=== PATIENT | female | born 1975 | race Caucasian/White ===

== ENCOUNTER → 2016-10-25 | Outpatient (CLI) | payer OTHER ==
[~2016-10-25] MED LIST: AMIT25TA PO; AMLO5TAB2 PO; BACL-67 PO; DICL50TAB PO; HYDR-3713 PO; HYDR25TAB PO; LIPI20TA PO; LISI20TA3 PO; LYRI150C PO; MELO7.5S PO; OXYB5TA PO; ROBA750T4 PO; SOMA350T PO; TIZA4CAP3 PO; VITA50003 PO; ZOFR20TA PO
--- NOTE | 2016-10-26 00:41 | ECWPNPC ---
PATIENT NAME: KIRA RAO : 1975 GENDER: FEMALE VISIT DATE: 10/25/2016 DISCHARGE DATE: 10/25/16 0950 VISIT LOCKED DATE TIME: PHYSICIAN: MAT WELSH RESOURCE: MAT WELSH REASON FOR APPOINTMENT 1. FOLLOW UP-POST TPI HISTORY OF PRESENT ILLNESS HISTORY OF PRESENT ILLNESS: PAIN THE PATIENT DESCRIBES THE PAIN... FALL RISK SCREENING: SCREENING :NO FALLS IN THE PAST YEAR TODAY'S VISIT: NOTES: PT IS S/P TRIGGER POINT INJECTIONS TO LOW BACK ON 09/27/16 . NOTES PAIN INCREASED AFTER ONE WEEK WITH RETURN OF SIGNIFICANT PRESSURE IN LEFT LOW BACK RADIATION TO HIP AND BUTTUCK. THIS OCCURED WITH ACTIVITY. WALKING AND ACTIVITY INCREASES PAIN RATES PAIN TODAY 7/10. DESCRIBES PAIN CONSTANT, ACHING, SHARP AND SORE. IS ASKING TODAY FOR A CANE.STATES LEGS FEEL WEAK.. CURRENT MEDICATIONS TAKING LIPITOR 40 MG TABLET 1 TABLET ORALLY ONCE A DAY TAKING LISINOPRIL 40 MG TABLET 1 TABLET ORALLY ONCE A DAY TAKING VITAMIN D (ERGOCALCIFEROL) 65838 UNIT CAPSULE 1 CAPSULE ORALLY WEEKLY TAKING SOMA 350 MG TABLET 1-2 TABLET ORALLY AT BEDTIME MDD=2 TAKING ZOFRAN ODT 8 MG TABLET DISPERSIBLE DIRECTED ORALLY Q 8 HOURS PRN NAUSEA TAKING NORCO 5-325 MG TABLET 1 -2 TABLET ORALLY EVERY 6-8 HRS NEEDED FOR PAIN. MDD = 3 TAKING GABAPENTIN 300 MG CAPSULE 1 CAPSULE ORALLY BID NOT-TAKING ADVAIR HFA 45-21 MCG/ACT AEROSOL 1 PUFFS INHALATION DAILY NOT-TAKING OXYBUTYNIN CHLORIDE 5 MG TABLET 1 TABLET ORALLY DAILY NOT-TAKING HYDROCHLOROTHIAZIDE 12.5 12.5MG TABLET ORAL NOT-TAKING FIORICET 50-300-40 MG CAPSULE 1 CAPSULE NEEDED ORALLY EVERY 4 HRS PRN MIGRAINE MDD=3 NOT-TAKING NORVASC 5 MG TABLET 1 TABLET ORALLY ONCE A DAY NOT-TAKING ONDANSETRON 4 MG TABLET DISPERSIBLE ORALLY DIRECTED UNKNOWN SOMA COMPOUND 350 MG TABLET 2 TABLETS ORALLY AT BEDTIME UNKNOWN SOMA 350 MG TABLET 1 TABLET ORALLY BID MDD=2 MEDICATION LIST REVIEWED AND RECONCILED WITH THE PATIENT PAST MEDICAL HISTORY HTN 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 NEW PATIENT PAIN DIARY TODAY'S VISITNOTES FROM 0-10, WHAT LEVEL IS YOUR PAIN TODAY?0 PAIN CLINIC PFS, CLERGY, PUBLIC HEALTH REFERRALS PFS REFERRAL NEEDED?NO CLERGY REFERRAL NEEDED?NO PUBLIC HEALTH REFERRAL NEEDED?NO WAS THE PROVIDER NOTIFIED OF ANY PERTINENT INFO?NO PFS REFERRAL NEEDED?NO CLERGY REFERRAL NEEDED?NO PUBLIC HEALTH REFERRAL NEEDED?NO WAS THE PROVIDER NOTIFIED OF ANY PERTINENT INFO?NO REVIEW OF SYSTEMS CONSTITUTIONAL: ANY CHANGE IN YOUR MEDICAL CONDITION? NO . CHILLS NO . FEVER NO . INFECTION: DO YOU HAVE NEW INFECTIONS? NO . DO YOU HAVE HISTORY OF MRSA? NO . MUSCULOSKELETAL: ANY NEW PATTERNS OF PAIN OR NUMBNESS? NO . GASTROENTEROLOGY: ANY NEW CHANGE IN BOWEL CONTROL? NO - NOTES SOME CONSTIPATION BUT REPORTS BOWELS MOVE DAILY. NOTES SOME ABDOMINAL BLOATING . GENITOURINARY: ANY NEW CHANGE IN BLADDER CONTROL? NO . IS THERE A CHANCE YOU COULD BE ? NO . HEMATOLOGY/LYMPH: DO YOU TAKE ANY BLOOD THINNERS? (FOR EXAMPLE- COUMADIN, PLAVIX, AGGRENOX, PLATEL, PRADAXA, OR XARELTO) NO . WHEN WAS YOUR LAST DOSE? DATE: TIME: . NEUROLOGY: HAVE YOU FALLEN IN THE PAST 6 MONTHS? NO . ANY NEW EXTREMITY NUMBNESS OR WEAKNESS? NO . CARDIOLOGY: DO YOU HAVE A PACEMAKER OR DEFIBRILLATOR? NO . RESPIRATORY: HAVE YOU BEEN SICK IN THE PAST WEEK? NO . FEVER NO . FLU LIKE SYMPTOMS? NO . COUGH NO . INTEGUMENTARY: DO YOU HAVE ANY RASHES OR OPEN SORES? NO . ALLERGIC/IMMUNO: ARE YOU ALLERGIC TO SHELLFISH OR IV DYE? NO . ANY NEW ALLERGIES? NO . PSYCHIATRIC: DO YOU HAVE THOUGHTS OF HURTING YOURSELF OR SOMEONE ELSE? NO . ARE YOU ABUSED, NEGLECTED, OR IN AN UNSAFE ENVIRONMENT? NO . ENDOCRINOLOGY: ARE YOU DIABETIC? NO . OTHER: DO YOU NEED ANY PRESCRIPTIONS? NO . IF YES, PLEASE LIST: ____ . ANY NEW PROBLEMS WITH YOUR MEDICATIONS? NO . WHEN DID YOU LAST EAT? ____ . WHEN DID YOU LAST DRINK? ____ . WHAT DID YOU LAST DRINK? ____ . NAME OF PERSON DRIVING YOU HOME? ____ . DO YOU HAVE ANY OTHER QUESTIONS OR CONCERNS NO . REVIEWED BY: PROVIDER: MAT BOWSERP . VITAL SIGNS WT 198.6 LBS, HT 54 IN, BMI 47.88 INDEX, BP 117/67 MM HG, HR 85 /MIN, RR 16 /MIN, TEMP 98.0 F, OXYGEN SAT % 96, NA INITIALS TL 0909. EXAMINATION GENERAL EXAMINATION: PSYCHALERT , ORIENTED X 3 , APPROPRIATE MOOD AND AFFECT . LUNGS:CLEAR TO AUSCULTATION BILATERALLY. HEART:HEART RATE REGULAR. MUSCULOSKELETAL:MUSCLE STRENGTH TESTING 5/5 BILATERAL LOWER EXTREMITIES. POINT TENDERNESS OVER LUMBAR SPINOUS PROCESSIES AND BILATERALLY OVER SACRAL ILIAC JOINTS. SLOW TO RISE TO STANDING POSITION. POSTURE UPRIGHT. GAIT SLOW, WIDEBASED AND ANTALGIC., TRIGGER POINTS:, ELICITED WITH PALPATION OVER LUMBAR PARAVERTEBRAL MUSCLES AND INTO THE SECRUM. RESTRICTION OF ROM IN THIS AREA. ASSESSMENTS SPONDYLOSIS WITHOUT MYELOPATHY OR RADICULOPATHY, LUMBAR REGION - M47.816 MYALGIA - M79.1 LUMBAR DISC DISPLACEMENT WITHOUT MYELOPATHY - M51.26 TREATMENT SPONDYLOSIS WITHOUT MYELOPATHY OR RADICULOPATHY, LUMBAR REGION CAUDAL/LUMBAR EPIDURAL NOTES: CONTINUE CURRENT MEDS. USE MILK OF MAGNESIA NEEDED FOR CONSTIPATION. SCRIPT FOR CANE WRITTEN - USE FOR BALANCE BUT DO NOT LEAN HEAVILY ON IT UTOX TODAY, ISTOP REGISTRY REVIEWED AND DEMNOSTRATES COMPLLIANCE. BRINGS IN MEDICATIONS WHICH IS APPROPRIATE FOR WHAT WAS DISPENSED. RECENT URINE TOXICOLOGY REVIEWED. NO UNAUTHORIZED MEDICATIONS. NO ILLICIT SUBSTANCES AND PRESCRIBED MEDICATIONS WERE PRESENT. MRI OF LUMBAR SPINE REVIEWED AND DISCUSSED WITH PATIENT. PROCEDURE CODES FA211 ESTABILISHED PATIENT [facility] FACILITY CHARGE ELECTRONICALLY SIGNED BY RAQUEL LIRA ON 10/25/2016 AT 10:21 AM EST DISCLAIMER : THIS IS A VISIT SUMMARY EXTRACTED FROM THE [employer] CHART. IT IS NOT A COPY OF THE [employer] PROGRESS NOTE. VIVIAN
== END ==
LOC: M PAIN 09:00
PROVIDERS: ATTEND Nurse Practitioner Family
DX: M47.816 Spondylosis without myelopathy or radiculopathy, lumbar region (principal); M79.1 Myalgia; M51.26 Other intervertebral disc displacement, lumbar region; Z79.891 Long term (current) use of opiate analgesic; Z79.899 Other long term (current) drug therapy

== ENCOUNTER → 2016-10-26 | Outpatient (CLI) | payer OTHER ==
[~2016-10-26] MED LIST changes: -HYDR-3713 PO; +HYDR1TAB97 PO
--- NOTE | 2016-10-26 09:18 | REP ---
CT chest without contrast 10/26/2016 Indication solitary pulmonary nodule Comparison made with chest radiograph 09/03/2016, CTA chest 12/22/2015 Technique: 3 mm contiguous spiral axial sections were performed through chest without contrast Findings: The thoracic aorta, chest radiograph 09/03/2016 Findings: Thoracic aorta is without aneurysm and few small nonspecific spinal nodes none of which are pathologically enlarged. There is no visualized pathologically enlarged hilar nodes although evaluation is somewhat limited in the absence of IV contrast. 3.5 mm focus of nodular pleural thickening is seen in the posterior aspect right upper lobe on image 23 series 201. Stable 3 mm pleural-based nodule in the lateral basilar segment left lower lobe, and may possibly representing a tiny granuloma, yet mostly uncalcified . Small amount of fibrotic scarring present within the right middle lobe, in region of the minor fissure. Minimal left basilar atelectatic changes are noted. Visualized portions of the liver, spleen, and pancreas normal. There has been a prior cholecystectomy. Adrenal glands are normal. Stomach is contracted. Impression 1. No pathologically enlarged mediastinal or hilar adenopathy 2. 3.5 mm focus of nodular pleural thickening and posterior aspect right upper lobe; 3 mm pleural-based nodule in the lateral basilar segment left lower lobe, possibly granuloma. If the patient is high risk for lung disease consider follow-up CT chest n 12 months 3. Small amount of chronic scarring in right middle lobe adjacent to minor fissure; minimal left basilar atelectatic changes. Signed by Ana Clark MD 10/26/2016 09:10 A
== END ==
LOC: M RAD 06:58
PROVIDERS: ATTEND Internal Medicine Pulmonary Disease
DX: R91.1 Solitary pulmonary nodule (principal); J84.10 Pulmonary fibrosis, unspecified

== ENCOUNTER → 2016-11-06 | Outpatient (CLI) | payer OTHER ==
[~2016-11-06] MED LIST changes: +HYDR-3713 PO; -HYDR1TAB97 PO; +ISOVUE-M 300 61% 15ML VIAL (Q9967) As Ordered ONE; +LIDOCAINE 1% SDV INJ 30 ML VIAL As Ordered ONE; +diazePAM 5 MG TAB As Ordered ONE; +methylPREDNISolone SUSP 40 MG/ML (DEPO-medrol) VIAL (J1030) As Ordered ONE; +oxyCODONE 5MG TAB As Ordered ONE
--- NOTE | 2016-11-06 13:59 | REP ---
PARTIAL LUMBAR SPINE SERIES: Three views. HISTORY: Spine injection for pain. 9 seconds of fluoroscopy time is reported. FINDINGS: A sequence of three fluoroscopically obtained intraprocedural spot radiographs of the lumbar spine document needle position and contrast injection associated with lumbar epidural injection procedure. Signed by Grant Kuhn MD 11/06/2016 02:07 P
--- NOTE | 2016-11-19 00:08 | ECWPNPC ---
PATIENT NAME: KIRA RAO : 1975 GENDER: FEMALE VISIT DATE: 11/06/2016 DISCHARGE DATE: 11/06/16 1233 VISIT LOCKED DATE TIME: PHYSICIAN: CASSANDRA RICHEY RESOURCE: CASSANDRA RICHEY REASON FOR APPOINTMENT 1. PROCEDURE: CAUDAL/LUMBAR EPIDURAL HISTORY OF PRESENT ILLNESS HISTORY OF PRESENT ILLNESS: PAIN THE PATIENT DESCRIBES THE PAIN... FALL RISK SCREENING: SCREENING :NO FALLS IN THE PAST YEAR CURRENT MEDICATIONS TAKING LIPITOR 40 MG TABLET 1 TABLET ORALLY ONCE A DAY, NOTES: NONE LATELY TAKING LISINOPRIL 40 MG TABLET 1 TABLET ORALLY ONCE A DAY, NOTES: 11/06/16 0600 TAKING VITAMIN D (ERGOCALCIFEROL) 94141 UNIT CAPSULE 1 CAPSULE ORALLY WEEKLY, NOTES: 10/31/16 TAKING SOMA 350 MG TABLET 1-2 TABLET ORALLY AT BEDTIME MDD=2, NOTES: 11/06/16 2000 TAKING ZOFRAN ODT 8 MG TABLET DISPERSIBLE DIRECTED ORALLY Q 8 HOURS PRN NAUSEA, NOTES: NONE LATELY TAKING NORCO 5-325 MG TABLET 1 -2 TABLET ORALLY EVERY 6-8 HRS NEEDED FOR PAIN. MDD = 3, NOTES: 11/06/16 0200 TAKING GABAPENTIN 300 MG CAPSULE 1 CAPSULE ORALLY BID, NOTES: 11/05/16 1500 NOT-TAKING ADVAIR HFA 45-21 MCG/ACT AEROSOL 1 PUFFS INHALATION DAILY NOT-TAKING OXYBUTYNIN CHLORIDE 5 MG TABLET 1 TABLET ORALLY DAILY NOT-TAKING HYDROCHLOROTHIAZIDE 12.5 12.5MG TABLET ORAL NOT-TAKING FIORICET 50-300-40 MG CAPSULE 1 CAPSULE NEEDED ORALLY EVERY 4 HRS PRN MIGRAINE MDD=3 NOT-TAKING NORVASC 5 MG TABLET 1 TABLET ORALLY ONCE A DAY NOT-TAKING ONDANSETRON 4 MG TABLET DISPERSIBLE ORALLY DIRECTED UNKNOWN SOMA COMPOUND 350 MG TABLET 2 TABLETS ORALLY AT BEDTIME UNKNOWN SOMA 350 MG TABLET 1 TABLET ORALLY BID MDD=2 MEDICATION LIST REVIEWED AND RECONCILED WITH THE PATIENT PAST MEDICAL HISTORY HTN 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 NEW PATIENT PAIN DIARY TODAY'S VISITNOTES FROM 0-10, WHAT LEVEL IS YOUR PAIN TODAY?0 TODAY'S VISITNOTES FROM 0-10, WHAT LEVEL IS YOUR PAIN TODAY?0 TODAY'S VISITNOTES FROM 0-10, WHAT LEVEL IS YOUR PAIN TODAY?0 PAIN CLINIC PFS, CLERGY, PUBLIC HEALTH REFERRALS PFS REFERRAL NEEDED?NO CLERGY REFERRAL NEEDED?NO PUBLIC HEALTH REFERRAL NEEDED?NO WAS THE PROVIDER NOTIFIED OF ANY PERTINENT INFO?NO PFS REFERRAL NEEDED?NO CLERGY REFERRAL NEEDED?NO PUBLIC HEALTH REFERRAL NEEDED?NO WAS THE PROVIDER NOTIFIED OF ANY PERTINENT INFO?NO PFS REFERRAL NEEDED?NO CLERGY REFERRAL NEEDED?NO PUBLIC HEALTH REFERRAL NEEDED?NO WAS THE PROVIDER NOTIFIED OF ANY PERTINENT INFO?NO PFS REFERRAL NEEDED?NO CLERGY REFERRAL NEEDED?NO PUBLIC HEALTH REFERRAL NEEDED?NO WAS THE PROVIDER NOTIFIED OF ANY PERTINENT INFO?NO PFS REFERRAL NEEDED?NO CLERGY REFERRAL NEEDED?NO PUBLIC HEALTH REFERRAL NEEDED?NO WAS THE PROVIDER NOTIFIED OF ANY PERTINENT INFO?NO PFS REFERRAL NEEDED?NO CLERGY REFERRAL NEEDED?NO PUBLIC HEALTH REFERRAL NEEDED?NO WAS THE PROVIDER NOTIFIED OF ANY PERTINENT INFO?NO REVIEW OF SYSTEMS CONSTITUTIONAL: ANY CHANGE IN YOUR MEDICAL CONDITION? NO . CHILLS NO . FEVER NO . INFECTION: DO YOU HAVE NEW INFECTIONS? NO . DO YOU HAVE HISTORY OF MRSA? NO . MUSCULOSKELETAL: ANY NEW PATTERNS OF PAIN OR NUMBNESS? NO . GASTROENTEROLOGY: ANY NEW CHANGE IN BOWEL CONTROL? NO . GENITOURINARY: ANY NEW CHANGE IN BLADDER CONTROL? NO . IS THERE A CHANCE YOU COULD BE ? NO . HEMATOLOGY/LYMPH: DO YOU TAKE ANY BLOOD THINNERS? (FOR EXAMPLE- COUMADIN, PLAVIX, AGGRENOX, PLATEL, PRADAXA, OR XARELTO) NO . WHEN WAS YOUR LAST DOSE? DATE: TIME: . NEUROLOGY: HAVE YOU FALLEN IN THE PAST 6 MONTHS? NO . ANY NEW EXTREMITY NUMBNESS OR WEAKNESS? NO . CARDIOLOGY: DO YOU HAVE A PACEMAKER OR DEFIBRILLATOR? NO . RESPIRATORY: HAVE YOU BEEN SICK IN THE PAST WEEK? NO . FEVER NO . FLU LIKE SYMPTOMS? NO . COUGH NO . INTEGUMENTARY: DO YOU HAVE ANY RASHES OR OPEN SORES? NO . ALLERGIC/IMMUNO: ARE YOU ALLERGIC TO SHELLFISH OR IV DYE? NO . ANY NEW ALLERGIES? NO . PSYCHIATRIC: DO YOU HAVE THOUGHTS OF HURTING YOURSELF OR SOMEONE ELSE? NO . ARE YOU ABUSED, NEGLECTED, OR IN AN UNSAFE ENVIRONMENT? NO . ENDOCRINOLOGY: ARE YOU DIABETIC? NO . OTHER: DO YOU NEED ANY PRESCRIPTIONS? NO . IF YES, PLEASE LIST: ____ . ANY NEW PROBLEMS WITH YOUR MEDICATIONS? NO . WHEN DID YOU LAST EAT? ____11/05/16 1500 . WHEN DID YOU LAST DRINK? ____11/05/16 1900 . WHAT DID YOU LAST DRINK? ____WATER . NAME OF PERSON DRIVING YOU HOME? ____NAISHA . DO YOU HAVE ANY OTHER QUESTIONS OR CONCERNS NO . REVIEWED BY: PROVIDER: . VITAL SIGNS WT 97.2 LBS, HT 54 IN, BMI 23.43 INDEX, BP 131/89 MM HG, HR 91 /MIN, RR 16 /MIN, TEMP 97.2 F, OXYGEN SAT % 100, NA INITIALS TL 1107, REVIEWED BY: MLF. ASSESSMENTS INTERVERTEBRAL DISC DISORDERS WITH RADICULOPATHY, LUMBAR REGION - M51.16 (PRIMARY) TREATMENT OTHERS REFILL NORCO TABLET, 5-325 MG, 1 -2 TABLET, ORALLY, EVERY 6-8 HRS NEEDED FOR PAIN. MDD = 4, 15 DAYS, 60, REFILLS 0, NOTES: 11/06/16 0200 PROCEDURES PRE PROCEDURE DIAGNOSIS LUMBAR RADICULOPATHY, LUMBAR DISC DISORDER WITH RADICULOPATHY POST PROCEDURE DIAGNOSIS LUMBAR RADICULOPATHY , LUMBAR DISC DISORDER WITH RADICULOPATHY PROCEDURE L4-L5 EPIDURAL STEROID INJECTION UNDER FLUOROSCOPIC GUIDANCE SURGEON DR. CASSANDRA RICHEY MACHINE PRESERVATIVE FILLER NONE ANESTHESIA LOCAL PRE PROCEDURE NOTE THE PATIENT HAS A HISTORY OF CHRONIC LOW BACK PAIN. I EVALUATE THE PATIENT AND REVIEWED THE CHART. I WENT OVER THE RISKS, ALTERNATIVES, AND BENEFITS ASSOCIATED WITH THIS PROCEDURE. THE PATIENT WOULD LIKE TO PROCEED AND GIVE CONSENT TO PERFORMED THE PROCEDURE. THE PATIENT DENIES UNEXPLAINABLE WEIGHT LOSS, FEVER, CHILLS, OR NEW CHANGES IN URINARY OR BOWEL CONTROL. DESCRIPTION OF PROCEDURE THE PATIENT WAS BROUGHT TO THE PROCEDURE ROOM AND PLACED IN THE PRONE POSITION. THE LUMBOSACRAL AREA WAS CLEANED WITH BETADINE SOLUTION AND DRAPED ASEPTICALLY. THE PROCEDURE WAS DONE UNDER STERILE CONDITIONS. I CHECKED LATERALITY AND THE LEVEL WHERE THE PROCEDURE WAS GOING TO BE PERFORMED WITH THE PATIENT AND THE SUPPORTING STAFF AT THE MOMENT OF THE TIME OUT IN THE PROCEDURE ROOM. UNDER FLUOROSCOPIC GUIDANCE, THE TARGET POINT WAS SELECTED AT THE INTERLAMINAR LEVEL OF L4-L5. LIDOCAINE WAS USED TO NUMB THE SKIN AND THE SUBCUTANEOUS TISSUE BELOW IT. EPIDURAL TUOHY NEEDLE, 17-GAUGE, WAS ADVANCED UNDER FLUOROSCOPIC GUIDANCE AND FOLLOWING PATIENT FEEDBACK UNTIL THE EPIDURAL SPACE WAS REACHED, 7 CM DEEP INTO THE SKIN BY THE LOSS OF RESISTANCE TECHNIQUE. ISOVUE M DYE 30%, 0.25 ML, WAS INJECTED SHOWING ADEQUATE SPREAD OF THE DYE. THEN, A SOLUTION OF 3 ML OF NORMAL SALINE WITH DEPO-MEDROL 60 MG WAS INJECTED SLOWLY FOLLOWING PATIENT FEEDBACK. THERE WAS NO EVIDENCE OF BLOOD, PARESTHESIA OR CEREBROSPINAL FLUID DURING THE PROCEDURE. THE PATIENT WAS SENT TO THE RECOVERY ROOM. THE PATIENT WAS MOVING THE EXTREMITIES AND DOING WELL. THERE WAS NO COMPLICATION DURING THE PROCEDURE. FLUOROSCOPY TIME WAS 9 SECONDS. POST PROCEDURE NOTE THE PATIENT WILL BE SEEN IN A FOLLOW UP IN THE NEXT FEW WEEKS. DISCUSSED WITH PATIENT THAT I WILL REFER HER TO A SURGEON FOR A SURGICAL CONSULT OF HER BACK. INSTRUCTIONS WERE GIVEN, QUESTIONS WERE ANSWERED, AND THE PATIENT EXPRESSED UNDERSTANDING AND AGREES WITH THE PLAN. INSTRUCTIONS WERE GIVEN, QUESTIONS WERE ANSWERED, PATIENT REPORTS UNDERSTANDING AND AGREES WITH THE PLAN. I, WALESKA NAVARRO, DOCUMENTED THE ABOVE INFORMATION ACTING A SCRIBE FOR DR. RICHEY. I HAVE REVIEWED THE ABOVE DOCUMENT, WRITTEN BY WALESKA NAVARRO SCRIBE AND I VERIFY THAT IT IS ACCURATE. DIAGNOSTIC IMAGING [facility] FLUORO GUIDE SPINE INJECTION (PAIN)[id number] PROCEDURE CODES 55714 LUMBAR/SACRAL W/ IMAGING 6045F RADXPS IN END [id number] PXD FOLLOW UP 3 WEEKS ELECTRONICALLY SIGNED BY CASSANDRA RICHEY MD ON 11/18/2016 AT 07:40 PM EST DISCLAIMER : THIS IS A VISIT SUMMARY EXTRACTED FROM THE [employer] CHART. IT IS NOT A COPY OF THE [employer] PROGRESS NOTE. MTDD
== END ==
LOC: M PAIN 10:50
PROVIDERS: ATTEND Anesthesiology
DX: Z09 Encounter for follow-up examination after completed treatment for conditions other than malignant neoplasm (principal); G89.29 Other chronic pain; M51.16 Intervertebral disc disorders with radiculopathy, lumbar region; I10 Essential (primary) hypertension; J45.909 Unspecified asthma, uncomplicated; Z79.891 Long term (current) use of opiate analgesic; Z79.899 Other long term (current) drug therapy
CPT/HCPCS: 62323; J1030; Q9967

== ENCOUNTER → 2016-11-21 | Outpatient (CLI) | payer OTHER ==
[~2016-11-21] MED LIST changes: -ISOVUE-M 300 61% 15ML VIAL (Q9967) As Ordered ONE; -LIDOCAINE 1% SDV INJ 30 ML VIAL As Ordered ONE; -diazePAM 5 MG TAB As Ordered ONE; -methylPREDNISolone SUSP 40 MG/ML (DEPO-medrol) VIAL (J1030) As Ordered ONE; -oxyCODONE 5MG TAB As Ordered ONE
--- NOTE | 2016-12-06 01:06 | ECWPNPC ---
PATIENT NAME: KIRA RAO : 1975 GENDER: FEMALE VISIT DATE: 11/21/2016 DISCHARGE DATE: 11/21/16 1532 VISIT LOCKED DATE TIME: PHYSICIAN: MAT WELSH RESOURCE: MAT WELSH REASON FOR APPOINTMENT 1. POST PROCEDURE, BACK/HIPS HISTORY OF PRESENT ILLNESS HISTORY OF PRESENT ILLNESS: PAIN THE PATIENT DESCRIBES THE PAIN... FALL RISK SCREENING: SCREENING :NO FALLS IN THE PAST YEAR TODAY'S VISIT: NOTES: HAS LESB 11/06/16. THIS HAD NO POSITIVE EFFECT. DR RICHEY REFERRED HER TO DR RIDDLE AND WAS SEEN TODAY BY Kate GARCIA FOR EVALUATION. STATES HE DID NOT HAVE THE MOST RECENT MRI. IS HAVING SHARP STABBING, POPPING SENSATION IN THE LOW BACK PARTICULARLY WHEN SHE BENDS. NOTES THAT HER MEDICATIONS ARE NOT GIVING HER MUCH RELIEF THEY USED TO. RATES PAIN LEVEL TODAY 9/10 DESCRIBES IT CONSTANT WITH INTERMITTENT SHARP STABBING AND SHOOTING SENSATION ACROSS THE LOW BACK AND INTO THE GROIN AND LEGS.. CURRENT MEDICATIONS TAKING LIPITOR 40 MG TABLET 1 TABLET ORALLY ONCE A DAY TAKING LISINOPRIL 40 MG TABLET 1 TABLET ORALLY ONCE A DAY TAKING VITAMIN D (ERGOCALCIFEROL) 47993 UNIT CAPSULE 1 CAPSULE ORALLY WEEKLY TAKING SOMA 350 MG TABLET 1-2 TABLET ORALLY AT BEDTIME MDD=2 TAKING ZOFRAN ODT 8 MG TABLET DISPERSIBLE DIRECTED ORALLY Q 8 HOURS PRN NAUSEA TAKING GABAPENTIN 300 MG CAPSULE 1 CAPSULE ORALLY BID TAKING NORCO 5-325 MG TABLET 1 -2 TABLET ORALLY EVERY 6-8 HRS NEEDED FOR PAIN. MDD = 4 NOT-TAKING ADVAIR HFA 45-21 MCG/ACT AEROSOL 1 PUFFS INHALATION DAILY NOT-TAKING OXYBUTYNIN CHLORIDE 5 MG TABLET 1 TABLET ORALLY DAILY NOT-TAKING HYDROCHLOROTHIAZIDE 12.5 12.5MG TABLET ORAL NOT-TAKING FIORICET 50-300-40 MG CAPSULE 1 CAPSULE NEEDED ORALLY EVERY 4 HRS PRN MIGRAINE MDD=3 NOT-TAKING NORVASC 5 MG TABLET 1 TABLET ORALLY ONCE A DAY NOT-TAKING ONDANSETRON 4 MG TABLET DISPERSIBLE ORALLY DIRECTED UNKNOWN SOMA COMPOUND 350 MG TABLET 2 TABLETS ORALLY AT BEDTIME UNKNOWN SOMA 350 MG TABLET 1 TABLET ORALLY BID MDD=2 MEDICATION LIST REVIEWED AND RECONCILED WITH THE PATIENT PAST MEDICAL HISTORY HTN 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 SOCIAL HISTORY GENERAL: TOBACCO USE ARE YOU A:CURRENT SMOKER LEARNING BARRIERS / SPECIAL NEEDS ORIENTED TO PLAN OF CARE: PATIENT, PAIN MANAGEMENT PATIENT, ORIENTED TO PLAN OF CARE: PATIENT, PAIN MANAGEMENT PATIENT. NEW PATIENT PAIN DIARY TODAY'S VISITNOTES FROM 0-10, WHAT LEVEL IS YOUR PAIN TODAY?0 PAIN CLINIC PFS, CLERGY, PUBLIC HEALTH REFERRALS PFS REFERRAL NEEDED?NO CLERGY REFERRAL NEEDED?NO PUBLIC HEALTH REFERRAL NEEDED?NO WAS THE PROVIDER NOTIFIED OF ANY PERTINENT INFO?NO PFS REFERRAL NEEDED?NO CLERGY REFERRAL NEEDED?NO PUBLIC HEALTH REFERRAL NEEDED?NO WAS THE PROVIDER NOTIFIED OF ANY PERTINENT INFO?NO REVIEW OF SYSTEMS CONSTITUTIONAL: ANY CHANGE IN YOUR MEDICAL CONDITION? NO . CHILLS NO . FEVER NO . INFECTION: DO YOU HAVE NEW INFECTIONS? NO . DO YOU HAVE HISTORY OF MRSA? NO . MUSCULOSKELETAL: ANY NEW PATTERNS OF PAIN OR NUMBNESS? NO . GASTROENTEROLOGY: ANY NEW CHANGE IN BOWEL CONTROL? NO . GENITOURINARY: ANY NEW CHANGE IN BLADDER CONTROL? NO . IS THERE A CHANCE YOU COULD BE ? NO . HEMATOLOGY/LYMPH: DO YOU TAKE ANY BLOOD THINNERS? (FOR EXAMPLE- COUMADIN, PLAVIX, AGGRENOX, PLATEL, PRADAXA, OR XARELTO) NO . WHEN WAS YOUR LAST DOSE? DATE: TIME: . NEUROLOGY: HAVE YOU FALLEN IN THE PAST 6 MONTHS? NO . ANY NEW EXTREMITY NUMBNESS OR WEAKNESS? NO . CARDIOLOGY: DO YOU HAVE A PACEMAKER OR DEFIBRILLATOR? NO . RESPIRATORY: HAVE YOU BEEN SICK IN THE PAST WEEK? NO . FEVER NO . FLU LIKE SYMPTOMS? NO . COUGH NO . INTEGUMENTARY: DO YOU HAVE ANY RASHES OR OPEN SORES? NO . ALLERGIC/IMMUNO: ARE YOU ALLERGIC TO SHELLFISH OR IV DYE? NO . ANY NEW ALLERGIES? NO . PSYCHIATRIC: DO YOU HAVE THOUGHTS OF HURTING YOURSELF OR SOMEONE ELSE? NO . ARE YOU ABUSED, NEGLECTED, OR IN AN UNSAFE ENVIRONMENT? NO . ENDOCRINOLOGY: ARE YOU DIABETIC? NO . OTHER: DO YOU NEED ANY PRESCRIPTIONS? NO . IF YES, PLEASE LIST: ____ . ANY NEW PROBLEMS WITH YOUR MEDICATIONS? NO . WHEN DID YOU LAST EAT? ____ . WHEN DID YOU LAST DRINK? ____ . WHAT DID YOU LAST DRINK? ____ . NAME OF PERSON DRIVING YOU HOME? ____ . DO YOU HAVE ANY OTHER QUESTIONS OR CONCERNS YES, PAIN IS WORSE . REVIEWED BY: PROVIDER: MAT GARNETT . VITAL SIGNS WT 197.2 LBS, HT 54 IN, BMI 47.54 INDEX, BP 116/67 MM HG, HR 96 /MIN, RR 16 /MIN, TEMP 98.5 F, OXYGEN SAT % 100%, NA INITIALS SC 14:29, REVIEWED BY: CS. EXAMINATION GENERAL EXAMINATION: PSYCHALERT , ORIENTED X 3 , APPROPRIATE MOOD AND AFFECT . LUNGS:CLEAR TO AUSCULTATION BILATERALLY. HEART:HEART RATE REGULAR. MUSCULOSKELETAL:MUSCLE STRENGTH TESTING 5/5 BILATERAL LOWER EXTREMITIES. POINT TENDERNESS OVER LUMBAR SPINOUS PROCESSIES AND BILATERALLY OVER SACRAL ILIAC JOINTS. SLOW TO RISE TO STANDING POSITION. POSTURE UPRIGHT. GAIT SLOW, WIDEBASED AND ANTALGIC., TRIGGER POINTS:, ELICITED WITH PALPATION OVER LUMBAR PARAVERTEBRAL MUSCLES AND INTO THE SECRUM. RESTRICTION OF ROM IN THIS AREA. ASSESSMENTS INTERVERTEBRAL DISC DISORDERS WITH RADICULOPATHY, LUMBAR REGION - M51.16 (PRIMARY) MYALGIA - M79.1 TREATMENT INTERVERTEBRAL DISC DISORDERS WITH RADICULOPATHY, LUMBAR REGION STOP GABAPENTIN CAPSULE, 300 MG, 1 CAPSULE, ORALLY, BID REFILL NORCO TABLET, 5-325 MG, 1 -2 TABLET, ORALLY, EVERY 6-8 HRS NEEDED FOR PAIN. MDD = 4, 30 DAYS, 120, REFILLS 0 START GABAPENTIN CAPSULE, 400 MG, 1 CAPSULE, ORALLY, THREE TIMES A DAY, 30 DAY(S), 90, REFILLS 1 LAB: COMPREHENSIVE METABOLIC PROFILE [facility] MRI LS SPINE W/O AND WITH [id number],[id number] M 11/21/2016 3:17:18 PM > INCREASING RIGHT RADICULAR PAIN NOTES: ISTOP REGISTRY REVIEWED AND DEMNOSTRATES COMPLLIANCE. BRINGS IN MEDICATIONS WHICH IS APPROPRIATE FOR WHAT WAS DISPENSED. RECENT URINE TOXICOLOGY REVIEWED. NO UNAUTHORIZED MEDICATIONS. NO ILLICIT SUBSTANCES AND PRESCRIBED MEDICATIONS WERE PRESENT. PROCEDURE CODES FA211 ESTABILISHED PATIENT [facility] FACILITY CHARGE DISPOSITION & COMMUNICATION FOLLOW UP 3 WEEKS (REASON: NEED AUTH FOR MRI LUMBAR SPINE W/ AND W/O CONTRAST) ELECTRONICALLY SIGNED BY RAQUEL LIRA ON 12/05/2016 AT 02:11 PM EST DISCLAIMER : THIS IS A VISIT SUMMARY EXTRACTED FROM THE [employer] CHART. IT IS NOT A COPY OF THE [employer] PROGRESS NOTE. MTDD
== END ==
LOC: M PAIN 14:40
PROVIDERS: ATTEND Nurse Practitioner Family
DX: Z09 Encounter for follow-up examination after completed treatment for conditions other than malignant neoplasm (principal); G89.29 Other chronic pain; M51.16 Intervertebral disc disorders with radiculopathy, lumbar region; M79.1 Myalgia; I10 Essential (primary) hypertension; J45.909 Unspecified asthma, uncomplicated; M51.26 Other intervertebral disc displacement, lumbar region; M16.11 Unilateral primary osteoarthritis, right hip; M70.61 Trochanteric bursitis, right hip; M70.62 Trochanteric bursitis, left hip; M47.816 Spondylosis without myelopathy or radiculopathy, lumbar region; M47.817 Spondylosis without myelopathy or radiculopathy, lumbosacral region; M47.814 Spondylosis without myelopathy or radiculopathy, thoracic region; M47.815 Spondylosis without myelopathy or radiculopathy, thoracolumbar region; F17.200 Nicotine dependence, unspecified, uncomplicated; Z79.891 Long term (current) use of opiate analgesic; Z79.899 Other long term (current) drug therapy

== ENCOUNTER → 2016-12-11 | Outpatient (REF) | payer OTHER ==
[2016-12-11 11:54] LABS: BASO % 0.6 % (0.0-1.0); EOS # 0.1 K/mm3 (0.0-0.50); EOS % 1.5 % (0.0-3.0); LYMPH # 2.7 K/mm3 (1.5-4.5); LYMPH % 31.9 % (24.0-44.0); MEAN CORPUSCULAR HEMOGLOBIN 29.1 pg (27.0-33.0); MEAN CORPUSCULAR HGB CONC 32.6 g/dl (32.0-36.5); MEAN CORPUSCULAR VOLUME 89.3 fl (80.0-96.0); MONO # 0.4 K/mm3 (0.0-0.8); MONO % 4.6 % (0.0-5.0); NEUTROPHILS # 4.8 K/mm3 (1.8-7.7); NEUTROPHILS % 59.4 % (36.0-66.0); RED CELL DISTRIBUTION WIDTH 12.8 % (11.5-14.5); WHITE BLOOD COUNT 8.1 K/mm3 (4.0-10.0)
[2016-12-11 12:17] LABS: ALBUMIN/GLOBULIN RATIO 1.18 (1.00-1.93); ALKALINE PHOSPHATASE 79 U/L (45-117); ALT/SGPT 23 U/L (12-78); ANION GAP 11 MEQ/L (8-16); AST/SGOT 15 U/L (15-37); BILIRUBIN,TOTAL 0.3 MG/DL (0.2-1.0); BLOOD UREA NITROGEN 10 MG/DL (7-18); CALCIUM LEVEL 8.8 MG/DL (8.5-10.1); CARBON DIOXIDE LEVEL 25 MEQ/L (21-32); CHLORIDE LEVEL 103 MEQ/L (98-107); CHOLESTEROL LEVEL 232 MG/DL (<200); GLOMERULAR FILTRATION RATE > 60.0 (>58); GLUCOSE, FASTING 87 MG/DL (70-105); POTASSIUM SERUM 4.2 MEQ/L (3.5-5.1); SODIUM LEVEL 139 MEQ/L (136-145); TOTAL PROTEIN 7.4 GM/DL (6.4-8.2); TRIGLYCERIDES LEVEL 276 MG/DL (<150)
== END ==
LOC: M LABDRAW1 11:23
PROVIDERS: ATTEND Physician Assistant Medical
DX: E78.2 Mixed hyperlipidemia (principal); E55.9 Vitamin D deficiency, unspecified

== ENCOUNTER → 2016-12-18 | Outpatient (CLI) | payer OTHER ==
--- NOTE | 2016-12-20 00:51 | ECWPNPC ---
PATIENT NAME: KIRA RAO : 1975 GENDER: FEMALE VISIT DATE: 12/18/2016 DISCHARGE DATE: 12/18/16 0957 VISIT LOCKED DATE TIME: PHYSICIAN: MAT WELSH RESOURCE: MAT WELSH REASON FOR APPOINTMENT 1. BACK PAIN/DISCOMFORT HISTORY OF PRESENT ILLNESS HISTORY OF PRESENT ILLNESS: PAIN THE PATIENT DESCRIBES THE PAIN... FALL RISK SCREENING: SCREENING :NO FALLS IN THE PAST YEAR TODAY'S VISIT: NOTES: HAS BEEN IN PT 2015 - WAS IN TOO MUCH PAIN TO COMPLETE DUE TO INCREASED PAIN AND INABILITY TO WALK WITHOUT MARKED DISCOMFORT. HAD BEEN ON NSAIDS BUT COULD NOT TOLERATE IBUPROFEN AND NAPROXEN AND MELIXICAM DUE TO ULCER FORMATION AND EPIGASTRIC PAIN AND NAUSEA AND VOMITING. IS EXPERIENCING WEAKNESS IN PROXIMAL AND DISTAL EXTREMITIES. IS NOTING NUMBNESS IN RIGHT CALF AND FOOT. NEEDS TO USE A CANE FOR SUPPORT. HAS NOT HAD ANY FALLS RECENTLY. IS CURRENTLY ON MUSCLE RELAXER BUT HAS HAD CONTINUED PAIN AND LOSS OF FUNCTIONS. MUSCLE RELAXERS USED HAVE INCLUDED SOMA, BACLOFAN AND CYCLOBENZAPRINE.. CURRENT MEDICATIONS TAKING LIPITOR 40 MG TABLET 1 TABLET ORALLY ONCE A DAY TAKING LISINOPRIL 40 MG TABLET 1 TABLET ORALLY ONCE A DAY TAKING VITAMIN D (ERGOCALCIFEROL) 86877 UNIT CAPSULE 1 CAPSULE ORALLY WEEKLY TAKING SOMA 350 MG TABLET 1-2 TABLET ORALLY AT BEDTIME MDD=2 TAKING ZOFRAN ODT 8 MG TABLET DISPERSIBLE DIRECTED ORALLY Q 8 HOURS PRN NAUSEA TAKING NORCO 5-325 MG TABLET 1 -2 TABLET ORALLY EVERY 6-8 HRS NEEDED FOR PAIN. MDD = 4 TAKING GABAPENTIN 400 MG CAPSULE 1 CAPSULE ORALLY THREE TIMES A DAY NOT-TAKING ADVAIR HFA 45-21 MCG/ACT AEROSOL 1 PUFFS INHALATION DAILY NOT-TAKING OXYBUTYNIN CHLORIDE 5 MG TABLET 1 TABLET ORALLY DAILY NOT-TAKING HYDROCHLOROTHIAZIDE 12.5 12.5MG TABLET ORAL NOT-TAKING FIORICET 50-300-40 MG CAPSULE 1 CAPSULE NEEDED ORALLY EVERY 4 HRS PRN MIGRAINE MDD=3 NOT-TAKING NORVASC 5 MG TABLET 1 TABLET ORALLY ONCE A DAY NOT-TAKING ONDANSETRON 4 MG TABLET DISPERSIBLE ORALLY DIRECTED UNKNOWN SOMA COMPOUND 350 MG TABLET 2 TABLETS ORALLY AT BEDTIME UNKNOWN SOMA 350 MG TABLET 1 TABLET ORALLY BID MDD=2 MEDICATION LIST REVIEWED AND RECONCILED WITH THE PATIENT PAST MEDICAL HISTORY HTN BLUGING 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 NEW PATIENT PAIN DIARY TODAY'S VISITNOTES FROM 0-10, WHAT LEVEL IS YOUR PAIN TODAY?0 PAIN CLINIC PFS, CLERGY, PUBLIC HEALTH REFERRALS PFS REFERRAL NEEDED?NO CLERGY REFERRAL NEEDED?NO PUBLIC HEALTH REFERRAL NEEDED?NO WAS THE PROVIDER NOTIFIED OF ANY PERTINENT INFO?NO PFS REFERRAL NEEDED?NO CLERGY REFERRAL NEEDED?NO PUBLIC HEALTH REFERRAL NEEDED?NO WAS THE PROVIDER NOTIFIED OF ANY PERTINENT INFO?NO REVIEW OF SYSTEMS CONSTITUTIONAL: ANY CHANGE IN YOUR MEDICAL CONDITION? NO . CHILLS NO . FEVER NO . INFECTION: DO YOU HAVE NEW INFECTIONS? NO . DO YOU HAVE HISTORY OF MRSA? NO . MUSCULOSKELETAL: ANY NEW PATTERNS OF PAIN OR NUMBNESS? NO . GASTROENTEROLOGY: ANY NEW CHANGE IN BOWEL CONTROL? NO . GENITOURINARY: ANY NEW CHANGE IN BLADDER CONTROL? NO . IS THERE A CHANCE YOU COULD BE ? NO . HEMATOLOGY/LYMPH: DO YOU TAKE ANY BLOOD THINNERS? (FOR EXAMPLE- COUMADIN, PLAVIX, AGGRENOX, PLATEL, PRADAXA, OR XARELTO) NO . WHEN WAS YOUR LAST DOSE? DATE: TIME: . NEUROLOGY: HAVE YOU FALLEN IN THE PAST 6 MONTHS? NO . ANY NEW EXTREMITY NUMBNESS OR WEAKNESS? NO . CARDIOLOGY: DO YOU HAVE A PACEMAKER OR DEFIBRILLATOR? NO . RESPIRATORY: HAVE YOU BEEN SICK IN THE PAST WEEK? NO . FEVER NO . FLU LIKE SYMPTOMS? NO . COUGH NO . INTEGUMENTARY: DO YOU HAVE ANY RASHES OR OPEN SORES? NO . ALLERGIC/IMMUNO: ARE YOU ALLERGIC TO SHELLFISH OR IV DYE? NO . ANY NEW ALLERGIES? NO . PSYCHIATRIC: DO YOU HAVE THOUGHTS OF HURTING YOURSELF OR SOMEONE ELSE? NO . ARE YOU ABUSED, NEGLECTED, OR IN AN UNSAFE ENVIRONMENT? NO . ENDOCRINOLOGY: ARE YOU DIABETIC? NO . OTHER: DO YOU NEED ANY PRESCRIPTIONS? NO . IF YES, PLEASE LIST: ____ . ANY NEW PROBLEMS WITH YOUR MEDICATIONS? NO . WHEN DID YOU LAST EAT? ____ . WHEN DID YOU LAST DRINK? ____ . WHAT DID YOU LAST DRINK? ____ . NAME OF PERSON DRIVING YOU HOME? ____ . DO YOU HAVE ANY OTHER QUESTIONS OR CONCERNS NO . REVIEWED BY: PROVIDER: MAT GARNETT . VITAL SIGNS WT 198 LBS, HT 54 IN, BMI 47.73 INDEX, BP 127/76 MM HG, HR 103 /MIN, RR 16 /MIN, TEMP 97.1 F, OXYGEN SAT % 96%, NA INITIALS SC09:10, REVIEWED BY: ALEX. EXAMINATION GENERAL EXAMINATION: PSYCHALERT , ORIENTED X 3 , APPROPRIATE MOOD AND AFFECT . LUNGS:CLEAR TO AUSCULTATION BILATERALLY. HEART:HEART RATE REGULAR. MUSCULOSKELETAL:MUSCLE STRENGTH TESTING 5/5 LEFT LOWER EXTREMITY, 4+/5 RIGHT LOWER EXTREMITY, DISTALLY AND PROXIMALLY. POINT TENDERNESS OVER LUMBAR SPINOUS PROCESSES AND BILATERALLY OVER SACRAL ILIAC JOINTS. SLOW TO RISE TO STANDING POSITION. POSTURE UPRIGHT. GAIT SLOW, WIDEBASED AND ANTALGIC., TRIGGER POINTS:, ELICITED WITH PALPATION OVER LUMBAR PARAVERTEBRAL MUSCLES AND INTO THE SACRUM. RESTRICTION OF ROM IN THIS AREA. GAIT STEPPING IN NATURE. DECREASED MUSCLE STRENGTH IN QUAD FLEXION BILATERALLY. NO FOOT DROP.. ASSESSMENTS INTERVERTEBRAL DISC DISORDERS WITH RADICULOPATHY, LUMBAR REGION - M51.16 (PRIMARY) MYALGIA - M79.1 TREATMENT INTERVERTEBRAL DISC DISORDERS WITH RADICULOPATHY, LUMBAR REGION REFILL NORCO TABLET, 5-325 MG, 1 -2 TABLET, ORALLY, EVERY 6-8 HRS NEEDED FOR PAIN. MDD = 4, 30 DAYS, 120, REFILLS 0 NOTES: CONTINUE CURRENT MEDS. SEE PRIMARY DOCTOR ABOUT NAUSEA AND STOMACH ISSUES. CLINICAL NOTES: ISTOP REGISTRY REVIEWED AND DEMNOSTRATES COMPLLIANCE. BRINGS IN MEDICATIONS WHICH IS APPROPRIATE FOR WHAT WAS DISPENSED. RECENT URINE TOXICOLOGY REVIEWED. NO UNAUTHORIZED MEDICATIONS. NO ILLICIT SUBSTANCES AND PRESCRIBED MEDICATIONS WERE PRESENT. PROCEDURE CODES FA211 ESTABILISHED PATIENT [facility] CHARGE DISPOSITION & COMMUNICATION FOLLOW UP 1 MONTH ELECTRONICALLY SIGNED BY RAQUEL LIRA ON 12/18/2016 AT 05:46 PM EST DISCLAIMER : THIS IS A VISIT SUMMARY EXTRACTED FROM THE [email or web address] CHART. IT IS NOT A COPY OF THE [email or web address] PROGRESS NOTE. MTDD
== END ==
LOC: M PAIN 09:20
PROVIDERS: ATTEND Nurse Practitioner Family
DX: Z09 Encounter for follow-up examination after completed treatment for conditions other than malignant neoplasm (principal); M51.16 Intervertebral disc disorders with radiculopathy, lumbar region; M79.1 Myalgia; I10 Essential (primary) hypertension; J45.909 Unspecified asthma, uncomplicated; F17.200 Nicotine dependence, unspecified, uncomplicated; Z79.891 Long term (current) use of opiate analgesic; Z79.899 Other long term (current) drug therapy

== ENCOUNTER → 2017-01-15 | Outpatient (CLI) | payer OTHER ==
--- NOTE | 2017-01-29 02:36 | ECWPNPC ---
PATIENT NAME: KIRA RAO : 1975 GENDER: FEMALE VISIT DATE: 01/15/2017 DISCHARGE DATE: 01/15/17 1121 VISIT LOCKED DATE TIME: PHYSICIAN: MAT WELSH RESOURCE: MAT WELSH REASON FOR APPOINTMENT 1. BACK PAIN/DISCOMFORT HISTORY OF PRESENT ILLNESS HISTORY OF PRESENT ILLNESS: PAIN THE PATIENT DESCRIBES THE PAIN... FALL RISK SCREENING: SCREENING :NO FALLS IN THE PAST YEAR TODAY'S VISIT: NOTES: RATES PAIN TODAY 04/22. DESCRIBES PAIN NOTES PAIN IS PRESENT PRIMARILY OVER HIPS AND LOW BACK.STILL HAS NO WORD ON MRI. HAS BEEN USING CANE WHICH IS HELPFUL. CANNOT WALK A DISTANCE WITHOUT SITTING DOWN. . CURRENT MEDICATIONS TAKING LIPITOR 40 MG TABLET 1 TABLET ORALLY ONCE A DAY TAKING LISINOPRIL 40 MG TABLET 1 TABLET ORALLY ONCE A DAY TAKING VITAMIN D (ERGOCALCIFEROL) 48692 UNIT CAPSULE 1 CAPSULE ORALLY WEEKLY TAKING SOMA 350 MG TABLET 1-2 TABLET ORALLY AT BEDTIME MDD=2 TAKING GABAPENTIN 400 MG CAPSULE 1 CAPSULE ORALLY THREE TIMES A DAY TAKING NORCO 5-325 MG TABLET 1 TABLET ORALLY FOUR TIMES DAILY NEEDED NOT-TAKING ADVAIR HFA 45-21 MCG/ACT AEROSOL 1 PUFFS INHALATION DAILY NOT-TAKING OXYBUTYNIN CHLORIDE 5 MG TABLET 1 TABLET ORALLY DAILY NOT-TAKING HYDROCHLOROTHIAZIDE 12.5 12.5MG TABLET ORAL NOT-TAKING FIORICET 50-300-40 MG CAPSULE 1 CAPSULE NEEDED ORALLY EVERY 4 HRS PRN MIGRAINE MDD=3 NOT-TAKING NORVASC 5 MG TABLET 1 TABLET ORALLY ONCE A DAY NOT-TAKING ONDANSETRON 4 MG TABLET DISPERSIBLE ORALLY DIRECTED DISCONTINUED ZOFRAN ODT 8 MG TABLET DISPERSIBLE DIRECTED ORALLY Q 8 HOURS PRN NAUSEA UNKNOWN SOMA COMPOUND 350 MG TABLET 2 TABLETS ORALLY AT BEDTIME UNKNOWN SOMA 350 MG TABLET 1 TABLET ORALLY BID MDD=2 MEDICATION LIST REVIEWED AND RECONCILED WITH THE PATIENT PAST MEDICAL HISTORY HTN 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 SOCIAL HISTORY GENERAL: TOBACCO USE ARE YOU A:CURRENT SMOKER HOW MANY CIGARETTES A DAY DO YOU SMOKE?6-10 HOW SOON AFTER YOU WAKE UP DO YOU SMOKE YOUR FIRST CIGARETTE?WITHIN 5 MIN HOW OFTEN DO YOU SMOKE CIGARETTES?EVERY DAY PATIENT COUNSELED ON THE DANGERS OF TOBACCO USE AND URGED TO QUIT:01/15/2017 ARE YOU INTERESTED IN QUITTING?NOT READY TO QUIT COUNSELED THE PATIENT ON SMOKING EFFECTS, EDUCATION OETIDSLR08/04/2017 PAIN CLINIC PFS, CLERGY, PUBLIC HEALTH REFERRALS CLERGY REFERRAL NEEDED?NO WAS THE PROVIDER NOTIFIED OF ANY PERTINENT INFO?NO PFS REFERRAL NEEDED?NO PUBLIC HEALTH REFERRAL NEEDED?NO PATIENT: ____. REVIEW OF SYSTEMS CONSTITUTIONAL: ANY CHANGE IN YOUR MEDICAL CONDITION? NO . CHILLS NO . FEVER NO . INFECTION: DO YOU HAVE NEW INFECTIONS? NO . DO YOU HAVE HISTORY OF MRSA? NO . MUSCULOSKELETAL: ANY NEW PATTERNS OF PAIN OR NUMBNESS? NO . GASTROENTEROLOGY: ANY NEW CHANGE IN BOWEL CONTROL? NO . GENITOURINARY: ANY NEW CHANGE IN BLADDER CONTROL? NO . IS THERE A CHANCE YOU COULD BE ? NO . HEMATOLOGY/LYMPH: DO YOU TAKE ANY BLOOD THINNERS? (FOR EXAMPLE- COUMADIN, PLAVIX, AGGRENOX, PLATEL, PRADAXA, OR XARELTO) NO . WHEN WAS YOUR LAST DOSE? DATE: TIME: . NEUROLOGY: HAVE YOU FALLEN IN THE PAST 6 MONTHS? NO . ANY NEW EXTREMITY NUMBNESS OR WEAKNESS? NO . CARDIOLOGY: DO YOU HAVE A PACEMAKER OR DEFIBRILLATOR? NO . RESPIRATORY: HAVE YOU BEEN SICK IN THE PAST WEEK? NO . FEVER NO . FLU LIKE SYMPTOMS? NO . COUGH NO . INTEGUMENTARY: DO YOU HAVE ANY RASHES OR OPEN SORES? NO . ALLERGIC/IMMUNO: ARE YOU ALLERGIC TO SHELLFISH OR IV DYE? NO . ANY NEW ALLERGIES? NO . PSYCHIATRIC: DO YOU HAVE THOUGHTS OF HURTING YOURSELF OR SOMEONE ELSE? NO . ARE YOU ABUSED, NEGLECTED, OR IN AN UNSAFE ENVIRONMENT? NO . ENDOCRINOLOGY: ARE YOU DIABETIC? NO . OTHER: DO YOU NEED ANY PRESCRIPTIONS? YES . IF YES, PLEASE LIST: ____NORCO AND SOMA . ANY NEW PROBLEMS WITH YOUR MEDICATIONS? NO . WHEN DID YOU LAST EAT? ____ . WHEN DID YOU LAST DRINK? ____ . WHAT DID YOU LAST DRINK? ____ . NAME OF PERSON DRIVING YOU HOME? ____ . DO YOU HAVE ANY OTHER QUESTIONS OR CONCERNS NO . REVIEWED BY: PROVIDER: MAT GARNETT . VITAL SIGNS WT 196.0 LBS, HT 54 IN, BMI 47.25 INDEX, BP 124/77 MM HG, HR 100 /MIN, RR 16 /MIN, TEMP 99.2 F, OXYGEN SAT % 96%, NA INITIALS TL 1029, REVIEWED BY: AD. EXAMINATION GENERAL EXAMINATION: PSYCHALERT , ORIENTED X 3 , APPROPRIATE MOOD AND AFFECT . LUNGS:CLEAR TO AUSCULTATION BILATERALLY. HEART:HEART RATE REGULAR. MUSCULOSKELETAL:MUSCLE STRENGTH TESTING 5/5 LEFT LOWER EXTREMITY, 4+/5 RIGHT LOWER EXTREMITY, DISTALLY AND PROXIMALLY. POINT TENDERNESS OVER LUMBAR SPINOUS PROCESSES AND BILATERALLY OVER SACRAL ILIAC JOINTS. SLOW TO RISE TO STANDING POSITION. POSTURE UPRIGHT. GAIT SLOW, WIDEBASED AND ANTALGIC., TRIGGER POINTS:, ELICITED WITH PALPATION OVER LUMBAR PARAVERTEBRAL MUSCLES AND INTO THE SACRUM. RESTRICTION OF ROM IN THIS AREA. GAIT STEPPING IN NATURE. DECREASED MUSCLE STRENGTH IN QUAD FLEXION BILATERALLY. NO FOOT DROP.. ASSESSMENTS INTERVERTEBRAL DISC DISORDERS WITH RADICULOPATHY, LUMBAR REGION - M51.16 (PRIMARY) MYALGIA - M79.1 TREATMENT INTERVERTEBRAL DISC DISORDERS WITH RADICULOPATHY, LUMBAR REGION REFILL NORCO TABLET, 5-325 MG, 1 TABLET, ORALLY, Q 6 HOURS PRN PAIN MDD=4, 30 DAY(S), 120, REFILLS 0 STOP SOMA COMPOUND TABLET, 350 MG, 2 TABLETS, ORALLY, AT BEDTIME REFILL SOMA TABLET, 350 MG, 1 TABLET, ORALLY, BID MDD=2, 30 DAY(S), 60, REFILLS 5 NOTES: CHECK STATUS ON MRI. CLINICAL NOTES: ISTOP REGISTRY REVIEWED AND DEMNOSTRATES COMPLLIANCE. BRINGS IN MEDICATIONS WHICH IS APPROPRIATE FOR WHAT WAS DISPENSED. RECENT URINE TOXICOLOGY REVIEWED. NO UNAUTHORIZED MEDICATIONS. NO ILLICIT SUBSTANCES AND PRESCRIBED MEDICATIONS WERE PRESENT. PROCEDURE CODES FA211 ESTABILISHED PATIENT [facility] CHARGE DISPOSITION & COMMUNICATION FOLLOW UP 1 MONTH ELECTRONICALLY SIGNED BY RAQUEL LIRA ON 01/28/2017 AT 08:55 AM EDT DISCLAIMER : THIS IS A VISIT SUMMARY EXTRACTED FROM THE [employer] CHART. IT IS NOT A COPY OF THE [employer] PROGRESS NOTE. SHANED
== END ==
LOC: M PAIN 10:20
PROVIDERS: ATTEND Nurse Practitioner Family
DX: Z09 Encounter for follow-up examination after completed treatment for conditions other than malignant neoplasm (principal); G89.29 Other chronic pain; M51.16 Intervertebral disc disorders with radiculopathy, lumbar region; M79.1 Myalgia; I10 Essential (primary) hypertension; F17.200 Nicotine dependence, unspecified, uncomplicated; Z79.891 Long term (current) use of opiate analgesic; Z79.899 Other long term (current) drug therapy

== ENCOUNTER → 2017-01-30 | Outpatient (CLI) | payer OTHER ==
--- NOTE | 2017-01-30 13:58 | REP ---
MR LUMBAR SPINE WITHOUT AND WITH CONTRAST: HISTORY: Radiculopathy. CONTRAST: ProHance 17 mL. COMPARISON: 06/06/2016 Decreased signal intensity on T2-weighted images is present in the L4-5 and L5-S1 intervertebral discs. The discs are decreased in height. These findings are consistent with disc degeneration. There is no disc bulge or herniation at the L1-2 and L2-3 levels. The nerves exit the neural foramina without compression. A diffuse disc bulge is present at the L3-4 level. There is minimal compression of the thecal sac. The L3 nerves exit the neural foramina without compression. A diffuse disc bulge and small central disc protrusion are present at the L4-5 level. The disc protrusion is decreased in size. There is minimal compression of the thecal sac. The L4 nerves exit the neural foramina without compression. A diffuse disc bulge and small disc protrusion central and eccentric to the left are present at the L5-S1 level. The disc protrusion abuts the thecal sac. The L5 nerves exit the neural foramina without compression. The conus medullaris is normal in appearance terminating at the level of the T12-L1 intervertebral disc. Normal signal intensity is present in the lumbar vertebral bodies. IMPRESSION: 1. Diffuse disc bulge at the L3-4 level with minimal thecal sac compression. This is a new finding. 2. Diffuse disc bulge and small disc protrusion at the L4-5 level with minimal thecal sac compression. The disc protrusion is decreased in size. 3. Diffuse disc bulge and small disc protrusion at the L5-S1 level. The disc protrusion abuts the thecal sac. There is no other significant change. Signed by David Lee MD 01/30/2017 02:18 P
== END ==
LOC: M RAD 11:48
PROVIDERS: ATTEND Nurse Practitioner Family
DX: M51.16 Intervertebral disc disorders with radiculopathy, lumbar region (principal)

== ENCOUNTER → 2017-02-25 | Outpatient (CLI) | payer OTHER ==
--- NOTE | 2017-03-11 23:41 | ECWPNPC ---
PATIENT NAME: KIRA RAO : 1975 GENDER: FEMALE VISIT DATE: 02/25/2017 DISCHARGE DATE: 02/25/17 1116 VISIT LOCKED DATE TIME: PHYSICIAN: MAT WELSH RESOURCE: MAT WELSH REASON FOR APPOINTMENT 1. BACK HISTORY OF PRESENT ILLNESS HISTORY OF PRESENT ILLNESS: PAIN THE PATIENT DESCRIBES THE PAIN... FALL RISK SCREENING: SCREENING :NO FALLS IN THE PAST YEAR TODAY'S VISIT: NOTES: RATES PAIN TODAY 7/10. DESCRIBES PAIN CONSTANT, ACHING, BURNING, SHARP AND STABBING, TENDER AND SORE. PAIN AREA REMAINS BILATERALLY OVER THE FLANKS AND INTO THE ABDOMEN AND OVER THE TOP OD THE ILIAC CREST BILATERALLY. . CURRENT MEDICATIONS TAKING LIPITOR 40 MG TABLET 1 TABLET ORALLY ONCE A DAY TAKING LISINOPRIL 40 MG TABLET 1 TABLET ORALLY ONCE A DAY TAKING VITAMIN D (ERGOCALCIFEROL) 21093 UNIT CAPSULE 1 CAPSULE ORALLY WEEKLY TAKING SOMA 350 MG TABLET 1-2 TABLET ORALLY AT BEDTIME MDD=2 TAKING NORCO 5-325 MG TABLET 1 TABLET ORALLY Q 6 HOURS PRN PAIN MDD=4 TAKING GABAPENTIN 400 MG CAPSULE 1 CAPSULE ORALLY THREE TIMES A DAY NOT-TAKING SOMA 350 MG TABLET 1 TABLET ORALLY BID MDD=2 NOT-TAKING ADVAIR HFA 45-21 MCG/ACT AEROSOL 1 PUFFS INHALATION DAILY NOT-TAKING OXYBUTYNIN CHLORIDE 5 MG TABLET 1 TABLET ORALLY DAILY NOT-TAKING HYDROCHLOROTHIAZIDE 12.5 12.5MG TABLET ORAL NOT-TAKING FIORICET 50-300-40 MG CAPSULE 1 CAPSULE NEEDED ORALLY EVERY 4 HRS PRN MIGRAINE MDD=3 NOT-TAKING NORVASC 5 MG TABLET 1 TABLET ORALLY ONCE A DAY NOT-TAKING ONDANSETRON 4 MG TABLET DISPERSIBLE ORALLY DIRECTED MEDICATION LIST REVIEWED AND RECONCILED WITH THE PATIENT PAST MEDICAL HISTORY HTN 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 SURGICAL HISTORY TUBAL GALLBLADDER REMOVED REVIEW OF SYSTEMS CONSTITUTIONAL: ANY CHANGE IN YOUR MEDICAL CONDITION? NO. PT STATES SHE IS HERE FOR MRI RESULTS. PT DENIES NEW CHANGES, PT RATES PAIN 7/10 TODAY. . CHILLS NO . FEVER NO . INFECTION: DO YOU HAVE NEW INFECTIONS? NO . DO YOU HAVE HISTORY OF MRSA? NO . MUSCULOSKELETAL: ANY NEW PATTERNS OF PAIN OR NUMBNESS? NO . GASTROENTEROLOGY: ANY NEW CHANGE IN BOWEL CONTROL? NO . GENITOURINARY: ANY NEW CHANGE IN BLADDER CONTROL? NO . IS THERE A CHANCE YOU COULD BE ? NO . HEMATOLOGY/LYMPH: DO YOU TAKE ANY BLOOD THINNERS? (FOR EXAMPLE- COUMADIN, PLAVIX, AGGRENOX, PLATEL, PRADAXA, OR XARELTO) NO . WHEN WAS YOUR LAST DOSE? DATE: TIME: . NEUROLOGY: HAVE YOU FALLEN IN THE PAST 6 MONTHS? NO . ANY NEW EXTREMITY NUMBNESS OR WEAKNESS? NO . CARDIOLOGY: DO YOU HAVE A PACEMAKER OR DEFIBRILLATOR? NO . RESPIRATORY: HAVE YOU BEEN SICK IN THE PAST WEEK? NO . FEVER NO . FLU LIKE SYMPTOMS? NO . COUGH NO . INTEGUMENTARY: DO YOU HAVE ANY RASHES OR OPEN SORES? NO . ALLERGIC/IMMUNO: ARE YOU ALLERGIC TO SHELLFISH OR IV DYE? NO . ANY NEW ALLERGIES? NO . PSYCHIATRIC: DO YOU HAVE THOUGHTS OF HURTING YOURSELF OR SOMEONE ELSE? NO . ARE YOU ABUSED, NEGLECTED, OR IN AN UNSAFE ENVIRONMENT? NO . ENDOCRINOLOGY: ARE YOU DIABETIC? NO . OTHER: DO YOU NEED ANY PRESCRIPTIONS? NO . IF YES, PLEASE LIST: ____ . ANY NEW PROBLEMS WITH YOUR MEDICATIONS? NO . WHEN DID YOU LAST EAT? ____ . WHEN DID YOU LAST DRINK? ____ . WHAT DID YOU LAST DRINK? ____ . NAME OF PERSON DRIVING YOU HOME? ____ . DO YOU HAVE ANY OTHER QUESTIONS OR CONCERNS NO . REVIEWED BY: PROVIDER: MAT GARNETT . VITAL SIGNS WT 196 LBS, HT 54 IN, BMI 47.25 INDEX, BP 122/69 MM HG, HR 104 /MIN, RR 16 /MIN, TEMP 97.7 F, OXYGEN SAT % 99%, NA INITIALS SC 10:27. EXAMINATION GENERAL EXAMINATION: PSYCHALERT , ORIENTED X 3 , APPROPRIATE MOOD AND AFFECT . LUNGS:CLEAR TO AUSCULTATION BILATERALLY. HEART:HEART RATE REGULAR. MUSCULOSKELETAL:POINT TENDERNESS OVER LUMBAR SPINOUS PROCESSES AND OVER THE L>R SIJ. SLOW TO RISE TO STANDING POSITION, GAIT ANTALGIC. SOME QUAD WEAKNESS NOTED BITALTERALLY. CANE USED FOR BALANCE.. EXTREMITIES:NO EDEMA. NEUROLOGIC EXAM:NO SENSORY DEFICIET IN LOWER EXTREMITIES.. DIAGNOSTIC TESTS REVIEWEDMRI OF LUMBAR SPINE WITH AND WITHOUT CONTRAST COMPLETED ON 01/30/17 AND REVIEWED WITH PATIENT. EVIDENCE OF NEW DISC BULGE AT L3. ASSESSMENTS INTERVERTEBRAL DISC DISORDERS WITH RADICULOPATHY, LUMBAR REGION - M51.16 LUMBAR RADICULOPATHY - M54.16 CHRONIC PRESCRIPTION OPIATE USE - Z79.891 TREATMENT INTERVERTEBRAL DISC DISORDERS WITH RADICULOPATHY, LUMBAR REGION REFILL NORCO TABLET, 5-325 MG, 1 TABLET, ORALLY, Q 6 HOURS PRN PAIN MDD=4, 30 DAY(S), 120, REFILLS 0 OTHERS NOTES: I AM GOING TO REQUEST A LUMBAR INTERLAMINAR EPIDURAL STEROID INJECTION AT THE L2-3 LEVEL FOR NEW FINDING OF DISC DISPACEMENT AT L3. CLINICAL NOTES: ISTOP REGISTRY REVIEWED AND DEMNOSTRATES COMPLLIANCE. BRINGS IN MEDICATIONS WHICH IS APPROPRIATE FOR WHAT WAS DISPENSED. RECENT URINE TOXICOLOGY REVIEWED. NO UNAUTHORIZED MEDICATIONS. NO ILLICIT SUBSTANCES AND PRESCRIBED MEDICATIONS WERE PRESENT. PREVENTIVE MEDICINE PAIN CLINIC TEACHING: PROCEDURE TEACHING DISCUSSED EPIDURAL PROCEDURE WITH PT. PT EXPRESSED UNDERSTANDING OF INSTRUCTIONS. PT STATES SHE HAS HAD MULTIPLE EPIDURALS BEFORE AND PT DECLINES HARDCOPY OF INSTRUCTIONS.. PROCEDURE CODES FA211 ESTABILISHED PATIENT [facility] FACILITY CHARGE DISPOSITION & COMMUNICATION FOLLOW UP REASON: I AM GOING TO REQUEST A LUMBAR INTERLAMINAR EPIDURAL STEROID INJECTION AT THE L2-3 LEVEL FOR NEW FIN ELECTRONICALLY SIGNED BY RAQUEL LIRA ON 03/11/2017 AT 04:44 PM EDT DISCLAIMER : THIS IS A VISIT SUMMARY EXTRACTED FROM THE [employer] CHART. IT IS NOT A COPY OF THE [employer] PROGRESS NOTE. VIVIAN
== END ==
LOC: M PAIN 10:40
PROVIDERS: ATTEND Nurse Practitioner Family
DX: G89.29 Other chronic pain (principal); M51.16 Intervertebral disc disorders with radiculopathy, lumbar region; I10 Essential (primary) hypertension; J45.909 Unspecified asthma, uncomplicated; Z68.42 Body mass index [BMI] 45.0-49.9, adult; Z79.891 Long term (current) use of opiate analgesic; Z79.899 Other long term (current) drug therapy

== ENCOUNTER → 2017-03-19 | Outpatient (CLI) | payer OTHER ==
[~2017-03-19] MED LIST changes: +ISOVUE-M 300 61% 15ML VIAL (Q9967) As Ordered ONE; +LIDOCAINE 1% SDV INJ 30 ML VIAL As Ordered ONE; +diazePAM 5 MG TAB As Ordered ONE; +methylPREDNISolone SUSP 40 MG/ML (DEPO-medrol) VIAL (J1030) As Ordered ONE; +oxyCODONE 5MG TAB As Ordered ONE
--- NOTE | 2017-03-19 12:31 | REP ---
PARTIAL LUMBAR SPINE SERIES: Three views. HISTORY: Lumbar epidural injection for pain. 7 seconds of fluoroscopy time is reported. FINDINGS: A sequence of three fluoroscopically obtained last image hold spot radiographs of the lumbar spine document needle position and contrast injection associated with lumbar epidural injection procedure. Signed by Grant Kuhn MD 03/19/2017 02:52 P
--- NOTE | 2017-03-24 23:30 | ECWPNPC ---
PATIENT NAME: KIRA RAO : 1975 GENDER: FEMALE VISIT DATE: 03/19/2017 DISCHARGE DATE: 03/19/17 1129 VISIT LOCKED DATE TIME: PHYSICIAN: CASSANDRA RICHEY RESOURCE: CASSANDRA RICHEY REASON FOR APPOINTMENT 1. LUMBAR INTERLAMINAL EPIDURAL HISTORY OF PRESENT ILLNESS HISTORY OF PRESENT ILLNESS: PAIN THE PATIENT DESCRIBES THE PAIN... FALL RISK SCREENING: SCREENING :NO FALLS IN THE PAST YEAR CURRENT MEDICATIONS TAKING LIPITOR 40 MG TABLET 1 TABLET ORALLY ONCE A DAY, NOTES: 03/19/17529 TAKING LISINOPRIL 40 MG TABLET 1 TABLET ORALLY ONCE A DAY, NOTES: 03/19/17529 TAKING VITAMIN D (ERGOCALCIFEROL) 56595 UNIT CAPSULE 1 CAPSULE ORALLY WEEKLY, NOTES: 03/15/17 TAKING SOMA 350 MG TABLET 1-2 TABLET ORALLY AT BEDTIME MDD=2, NOTES: 03/18/17 1900 TAKING GABAPENTIN 400 MG CAPSULE 1 CAPSULE ORALLY THREE TIMES A DAY, NOTES: 03/19/17529 TAKING NORCO 5-325 MG TABLET 1 TABLET ORALLY Q 6 HOURS PRN PAIN MDD=4, NOTES: 03/18/17 1900 NOT-TAKING SOMA 350 MG TABLET 1 TABLET ORALLY BID MDD=2 NOT-TAKING ADVAIR HFA 45-21 MCG/ACT AEROSOL 1 PUFFS INHALATION DAILY NOT-TAKING OXYBUTYNIN CHLORIDE 5 MG TABLET 1 TABLET ORALLY DAILY NOT-TAKING HYDROCHLOROTHIAZIDE 12.5 12.5MG TABLET ORAL NOT-TAKING FIORICET 50-300-40 MG CAPSULE 1 CAPSULE NEEDED ORALLY EVERY 4 HRS PRN MIGRAINE MDD=3 NOT-TAKING NORVASC 5 MG TABLET 1 TABLET ORALLY ONCE A DAY NOT-TAKING ONDANSETRON 4 MG TABLET DISPERSIBLE ORALLY DIRECTED MEDICATION LIST REVIEWED AND RECONCILED WITH THE PATIENT PAST MEDICAL HISTORY HTN 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 SURGICAL HISTORY TUBAL GALLBLADDER REMOVED SOCIAL HISTORY GENERAL: TOBACCO USE ARE YOU A:CURRENT SMOKER HOW MANY CIGARETTES A DAY DO YOU SMOKE?6-10 HOW SOON AFTER YOU WAKE UP DO YOU SMOKE YOUR FIRST CIGARETTE?WITHIN 5 MIN HOW OFTEN DO YOU SMOKE CIGARETTES?EVERY DAY PATIENT COUNSELED ON THE DANGERS OF TOBACCO USE AND URGED TO QUIT:01/15/2017 ARE YOU INTERESTED IN QUITTING?NOT READY TO QUIT COUNSELED THE PATIENT ON SMOKING EFFECTS, EDUCATION [id number]/04/2017 PAIN CLINIC PFS, CLERGY, PUBLIC HEALTH REFERRALS PFS REFERRAL NEEDED? NO , CLERGY REFERRAL NEEDED? NO , PUBLIC HEALTH REFERRAL NEEDED? NO , WAS THE PROVIDER NOTIFIED OF ANY PERTINENT INFO? NO . PATIENT: ____. HOSPITALIZATION/MAJOR DIAGNOSTIC PROCEDURE DENIES PAST HOSPITALIZATION REVIEW OF SYSTEMS CONSTITUTIONAL: ANY CHANGE IN YOUR MEDICAL CONDITION? NO . CHILLS NO . FEVER NO . INFECTION: DO YOU HAVE NEW INFECTIONS? NO . DO YOU HAVE HISTORY OF MRSA? NO . MUSCULOSKELETAL: ANY NEW PATTERNS OF PAIN OR NUMBNESS? NO . GASTROENTEROLOGY: ANY NEW CHANGE IN BOWEL CONTROL? NO . GENITOURINARY: ANY NEW CHANGE IN BLADDER CONTROL? NO . IS THERE A CHANCE YOU COULD BE ? NO . HEMATOLOGY/LYMPH: DO YOU TAKE ANY BLOOD THINNERS? (FOR EXAMPLE- COUMADIN, PLAVIX, AGGRENOX, PLATEL, PRADAXA, OR XARELTO) NO . WHEN WAS YOUR LAST DOSE? DATE: TIME: . NEUROLOGY: HAVE YOU FALLEN IN THE PAST 6 MONTHS? NO . ANY NEW EXTREMITY NUMBNESS OR WEAKNESS? NO . CARDIOLOGY: DO YOU HAVE A PACEMAKER OR DEFIBRILLATOR? NO . RESPIRATORY: HAVE YOU BEEN SICK IN THE PAST WEEK? NO . FEVER NO . FLU LIKE SYMPTOMS? NO . COUGH NO . INTEGUMENTARY: DO YOU HAVE ANY RASHES OR OPEN SORES? NO . ALLERGIC/IMMUNO: ARE YOU ALLERGIC TO SHELLFISH OR IV DYE? NO . ANY NEW ALLERGIES? NO . PSYCHIATRIC: DO YOU HAVE THOUGHTS OF HURTING YOURSELF OR SOMEONE ELSE? NO . ARE YOU ABUSED, NEGLECTED, OR IN AN UNSAFE ENVIRONMENT? NO . ENDOCRINOLOGY: ARE YOU DIABETIC? NO . OTHER: DO YOU NEED ANY PRESCRIPTIONS? NO . IF YES, PLEASE LIST: ____ . ANY NEW PROBLEMS WITH YOUR MEDICATIONS? NO . WHEN DID YOU LAST EAT? YESTERDAY . WHEN DID YOU LAST DRINK? YESTERDAY . WHAT DID YOU LAST DRINK? WATER . NAME OF PERSON DRIVING YOU HOME? MINH . DO YOU HAVE ANY OTHER QUESTIONS OR CONCERNS NO . REVIEWED BY: PROVIDER: . VITAL SIGNS WT 198.6 LBS, HT 54 IN, BMI 47.88 INDEX, BP 115/65 MM HG, HR 84 /MIN, RR 16 /MIN, TEMP 97.6 F, OXYGEN SAT % 99%, NA INITIALS SC 10:01, REVIEWED BY: LS. ASSESSMENTS INTERVERTEBRAL DISC DISORDERS WITH RADICULOPATHY, LUMBAR REGION - M51.16 (PRIMARY) PROCEDURES PRE PROCEDURE DIAGNOSIS LUMBAR RADICULOPATHY, LUMBAR DISC DISORDER WITH RADICULOPATHY POST PROCEDURE DIAGNOSIS LUMBAR RADICULOPATHY , LUMBAR DISC DISORDER WITH RADICULOPATHY PROCEDURE LUMBAR EPIDURAL STEROID INJECTION UNDER FLUOROSCOPIC GUIDANCE SURGEON DR. CASSANDRA RICHEY CASINO BEVERAGE SERVER NONE ANESTHESIA LOCAL PRE PROCEDURE NOTE THE PATIENT HAS A HISTORY OF CHRONIC LOW BACK PAIN. I EVALUATE THE PATIENT AND REVIEWED THE CHART. I WENT OVER THE RISKS, ALTERNATIVES, AND BENEFITS ASSOCIATED WITH THIS PROCEDURE. THE PATIENT WOULD LIKE TO PROCEED AND GIVE CONSENT TO PERFORMED THE PROCEDURE. THE PATIENT DENIES UNEXPLAINABLE WEIGHT LOSS, FEVER, CHILLS, OR NEW CHANGES IN URINARY OR BOWEL CONTROL. DESCRIPTION OF PROCEDURE THE PATIENT WAS BROUGHT TO THE PROCEDURE ROOM AND PLACED IN THE PRONE POSITION. THE LUMBOSACRAL AREA WAS CLEANED WITH BETADINE SOLUTION AND DRAPED ASEPTICALLY. THE PROCEDURE WAS DONE UNDER STERILE CONDITIONS. I CHECKED LATERALITY AND THE LEVEL WHERE THE PROCEDURE WAS GOING TO BE PERFORMED WITH THE PATIENT AND THE SUPPORTING STAFF AT THE MOMENT OF THE TIME OUT IN THE PROCEDURE ROOM. UNDER FLUOROSCOPIC GUIDANCE, THE TARGET POINT WAS SELECTED AT THE INTERLAMINAR LEVEL OF L4-L5. LIDOCAINE WAS USED TO NUMB THE SKIN AND THE SUBCUTANEOUS TISSUE BELOW IT. EPIDURAL TUOHY NEEDLE, 17-GAUGE, WAS ADVANCED UNDER FLUOROSCOPIC GUIDANCE AND FOLLOWING PATIENT FEEDBACK UNTIL THE EPIDURAL SPACE WAS REACHED, 7 CM DEEP INTO THE SKIN BY THE LOSS OF RESISTANCE TECHNIQUE. ISOVUE M DYE 30%, 0.25 ML, WAS INJECTED SHOWING ADEQUATE SPREAD OF THE DYE. THEN, A SOLUTION OF 3 ML OF NORMAL SALINE WITH DEPO-MEDROL 60 MG WAS INJECTED SLOWLY FOLLOWING PATIENT FEEDBACK. THERE WAS NO EVIDENCE OF BLOOD, PARESTHESIA OR CEREBROSPINAL FLUID DURING THE PROCEDURE. THE PATIENT WAS SENT TO THE RECOVERY ROOM. THE PATIENT WAS MOVING THE EXTREMITIES AND DOING WELL. THERE WAS NO COMPLICATION DURING THE PROCEDURE. FLUOROSCOPY TIME WAS 7 SECONDS. POST PROCEDURE NOTE THE PATIENT WILL BE SEEN IN A FOLLOW UP IN THE NEXT FEW WEEKS. INSTRUCTIONS WERE GIVEN, QUESTIONS WERE ANSWERED, AND THE PATIENT EXPRESSED UNDERSTANDING AND AGREES WITH THE PLAN. I, WALESKA NAVARRO, DOCUMENTED THE ABOVE INFORMATION ACTING A SCRIBE FOR DR. RICHEY. I HAVE REVIEWED THE ABOVE DOCUMENT, WRITTEN BY WALESKA YINGIBFranco AND I VERIFY THAT IT IS ACCURATE DIAGNOSTIC IMAGING [facility] FLUORO GUIDE SPINE INJECTION (PAIN)[id number] PROCEDURE CODES 73693 LUMBAR/SACRAL W/ IMAGING 6045F RADXPS IN END [id number] PXD DISPOSITION & COMMUNICATION FOLLOW UP 3 WEEKS ELECTRONICALLY SIGNED BY CASSANDRA RICHEY MD ON 03/24/2017 AT 07:49 PM EDT DISCLAIMER : THIS IS A VISIT SUMMARY EXTRACTED FROM THE [employer] CHART. IT IS NOT A COPY OF THE [employer] PROGRESS NOTE. MTDD
== END ==
LOC: M PAIN 10:20
PROVIDERS: ATTEND Anesthesiology
DX: G89.29 Other chronic pain (principal); M51.16 Intervertebral disc disorders with radiculopathy, lumbar region; I10 Essential (primary) hypertension; J45.909 Unspecified asthma, uncomplicated; F17.210 Nicotine dependence, cigarettes, uncomplicated; Z79.891 Long term (current) use of opiate analgesic; Z79.899 Other long term (current) drug therapy

== ENCOUNTER → 2017-04-04 | Outpatient (CLI) | payer OTHER ==
[~2017-04-04] MED LIST changes: +ATOR40TA75; -BACL-67 PO; +BACL1TAB9 PO; +CARI350T; +GABA-283; +GABA-283 PO; -ISOVUE-M 300 61% 15ML VIAL (Q9967) As Ordered ONE; +KETO10TAB PO; -LIDOCAINE 1% SDV INJ 30 ML VIAL As Ordered ONE; +LISI10TA4 PO; +LISI40TAB; +LISI40TAB PO; -OXYB5TA PO; +OXYB5TAB10 PO; +PANT40TA2; +PRED20TA PO; +TIZANIDINE; +VITA1CAP40 PO; -VITA50003 PO; -diazePAM 5 MG TAB As Ordered ONE; -methylPREDNISolone SUSP 40 MG/ML (DEPO-medrol) VIAL (J1030) As Ordered ONE; -oxyCODONE 5MG TAB As Ordered ONE
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
== END ==
LOC: M PAIN 11:00
PROVIDERS: ATTEND Nurse Practitioner Family
DX: G89.29 Other chronic pain (principal); M51.16 Intervertebral disc disorders with radiculopathy, lumbar region; I10 Essential (primary) hypertension; J45.909 Unspecified asthma, uncomplicated; F17.210 Nicotine dependence, cigarettes, uncomplicated; Z79.891 Long term (current) use of opiate analgesic; Z79.899 Other long term (current) drug therapy

== ENCOUNTER → 2017-05-02 | Outpatient (CLI) | payer OTHER ==
--- NOTE | 2017-05-31 02:03 | ECWPNPC ---
PATIENT NAME: KIRA RAO : 1975 GENDER: FEMALE VISIT DATE: 05/02/2017 DISCHARGE DATE: 05/02/17 1202 VISIT LOCKED DATE TIME: PHYSICIAN: MAT WELSH RESOURCE: MAT WELSH REASON FOR APPOINTMENT 1. BACK PAIN HISTORY OF PRESENT ILLNESS HISTORY OF PRESENT ILLNESS: PAIN THE PATIENT DESCRIBES THE PAIN... FALL RISK SCREENING: SCREENING :NO FALLS IN THE PAST YEAR TODAY'S VISIT: NOTES: RATES PAIN LEVEL TODAY 8/10. REPORTS PAIN IS GETTING WORSE. DESCRIBES PAIN SHARP, STABBING, ACHING, TENDER, THROBBING AND SHOOTING. PAIN REMAINS CENTERED OVER LOW BACK TO HIPS AND DOWN BOTH LEGS. REPORTS LAYING DOWN ON RIGHT SIDE IS THE MOST COMFORTABLE. HURTS TO MOVE TO STANDING POSITION. SLEEP HAS BEEN POOR. REPORTS NONE OF THE INJECTIONS HAVE BEEN HELPFUL.. CURRENT MEDICATIONS TAKING LIPITOR 40 MG TABLET 1 TABLET ORALLY ONCE A DAY TAKING LISINOPRIL 40 MG TABLET 1 TABLET ORALLY ONCE A DAY TAKING VITAMIN D (ERGOCALCIFEROL) 32456 UNIT CAPSULE 1 CAPSULE ORALLY WEEKLY TAKING SOMA 350 MG TABLET 1-2 TABLET ORALLY AT BEDTIME MDD=2, NOTES: 05/01/17 AT 2000 TAKING GABAPENTIN 400 MG CAPSULE 1 CAPSULE ORALLY THREE TIMES A DAY, NOTES: 05/02/17 AT 0700 TAKING NORCO 5-325 MG TABLET 1 TABLET ORALLY Q 6 HOURS PRN PAIN MDD=4, NOTES: 05/02/17 AT 0700 NOT-TAKING SOMA 350 MG TABLET 1 TABLET ORALLY BID MDD=2 NOT-TAKING ADVAIR HFA 45-21 MCG/ACT AEROSOL 1 PUFFS INHALATION DAILY NOT-TAKING OXYBUTYNIN CHLORIDE 5 MG TABLET 1 TABLET ORALLY DAILY NOT-TAKING HYDROCHLOROTHIAZIDE 12.5 12.5MG TABLET ORAL NOT-TAKING FIORICET 50-300-40 MG CAPSULE 1 CAPSULE NEEDED ORALLY EVERY 4 HRS PRN MIGRAINE MDD=3 NOT-TAKING NORVASC 5 MG TABLET 1 TABLET ORALLY ONCE A DAY NOT-TAKING ONDANSETRON 4 MG TABLET DISPERSIBLE ORALLY DIRECTED MEDICATION LIST REVIEWED AND RECONCILED WITH THE PATIENT PAST MEDICAL HISTORY HTN 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 SOCIAL HISTORY GENERAL: TOBACCO USE ARE YOU A:CURRENT SMOKER HOW MANY CIGARETTES A DAY DO YOU SMOKE?6-10 HOW SOON AFTER YOU WAKE UP DO YOU SMOKE YOUR FIRST CIGARETTE?WITHIN 5 MIN HOW OFTEN DO YOU SMOKE CIGARETTES?EVERY DAY PATIENT COUNSELED ON THE DANGERS OF TOBACCO USE AND URGED TO QUIT:04/04/2017 ARE YOU INTERESTED IN QUITTING?NOT READY TO QUIT COUNSELED THE PATIENT ON SMOKING EFFECTS, EDUCATION [id number]/22/2017 PAIN CLINIC PFS, CLERGY, PUBLIC HEALTH REFERRALS PFS REFERRAL NEEDED?NO CLERGY REFERRAL NEEDED?NO PUBLIC HEALTH REFERRAL NEEDED?NO HAS THE PATIENT BEEN EDUCATED REGARDING HIS/HER PLAN OF CARE?YES HAS THE PATIENT BEEN EDUCATED REGARDING PAIN, THE RISK FOR PAIN, THE IMPORTANCE OF EFFECTIVE PAIN MANAGEMENT, AND THE PAIN ASSESSMENT PROCESS?YES PATIENT: ____. REVIEW OF SYSTEMS REVIEWED BY: PROVIDER: MAT GARNETT . CONSTITUTIONAL: ANY CHANGE IN YOUR MEDICAL CONDITION? NO . CHILLS NO . FEVER NO . INFECTION: DO YOU HAVE NEW INFECTIONS? NO . DO YOU HAVE HISTORY OF MRSA? NO . MUSCULOSKELETAL: ANY NEW PATTERNS OF PAIN OR NUMBNESS? NO . GASTROENTEROLOGY: ANY NEW CHANGE IN BOWEL CONTROL? NO . GENITOURINARY: ANY NEW CHANGE IN BLADDER CONTROL? NO . IS THERE A CHANCE YOU COULD BE ? NO . HEMATOLOGY/LYMPH: DO YOU TAKE ANY BLOOD THINNERS? (FOR EXAMPLE- COUMADIN, PLAVIX, AGGRENOX, PLATEL, PRADAXA, OR XARELTO) NO . WHEN WAS YOUR LAST DOSE? DATE: TIME: . NEUROLOGY: HAVE YOU FALLEN IN THE PAST 6 MONTHS? NO . ANY NEW EXTREMITY NUMBNESS OR WEAKNESS? NO . CARDIOLOGY: DO YOU HAVE A PACEMAKER OR DEFIBRILLATOR? NO . RESPIRATORY: HAVE YOU BEEN SICK IN THE PAST WEEK? NO . FEVER NO . FLU LIKE SYMPTOMS? NO . COUGH NO . INTEGUMENTARY: DO YOU HAVE ANY RASHES OR OPEN SORES? NO . ALLERGIC/IMMUNO: ARE YOU ALLERGIC TO SHELLFISH OR IV DYE? NO . ANY NEW ALLERGIES? NO . PSYCHIATRIC: DO YOU HAVE THOUGHTS OF HURTING YOURSELF OR SOMEONE ELSE? NO . ARE YOU ABUSED, NEGLECTED, OR IN AN UNSAFE ENVIRONMENT? NO . ENDOCRINOLOGY: ARE YOU DIABETIC? NO . OTHER: DO YOU NEED ANY PRESCRIPTIONS? NO . IF YES, PLEASE LIST: ____ . ANY NEW PROBLEMS WITH YOUR MEDICATIONS? NO . WHEN DID YOU LAST EAT? ____ . WHEN DID YOU LAST DRINK? ____ . WHAT DID YOU LAST DRINK? ____ . NAME OF PERSON DRIVING YOU HOME? ____ . DO YOU HAVE ANY OTHER QUESTIONS OR CONCERNS YES, &QUOT;PAIN IS GETTING WORSE AND WORSE&QUOT; . VITAL SIGNS WT 193.0 LBS, HT 64 IN, BMI 33.12 INDEX, BP 122/65 MM HG, HR 97 /MIN, RR 16 /MIN, TEMP 98.3 F, OXYGEN SAT % 97%, NA INITIALS TL 1116, REVIEWED BY: KELSEY. EXAMINATION GENERAL EXAMINATION: PSYCHALERT , ORIENTED X 3 , APPROPRIATE MOOD AND AFFECT . LUNGS:CLEAR TO AUSCULTATION BILATERALLY. HEART:HEART RATE REGULAR. MUSCULOSKELETAL:POINT TENDERNESS OVER LUMBAR SPINOUS PROCESSES AND OVER THE BILATERAL SACRAL ILIAC JOINTS. . SLOW TO RISE TO STANDING POSITION, GAIT ANTALGIC. SOME QUAD WEAKNESS NOTED BITALTERALLY. CANE USED FOR BALANCE.. EXTREMITIES:NO EDEMA. NEUROLOGIC EXAM:NO SENSORY DEFICIET IN LOWER EXTREMITIES.. ASSESSMENTS INTERVERTEBRAL DISC DISORDERS WITH RADICULOPATHY, LUMBAR REGION - M51.16 (PRIMARY) LUMBAR RADICULOPATHY - M54.16 CHRONIC PRESCRIPTION OPIATE USE - Z79.891 TREATMENT INTERVERTEBRAL DISC DISORDERS WITH RADICULOPATHY, LUMBAR REGION REFILL NORCO TABLET, 5-325 MG, 1 TABLET, ORALLY, Q 6 HOURS PRN PAIN MDD=4, 30 DAY(S), 120, REFILLS 0, NOTES: 05/02/17 AT 0700 NOTES: UTOX TODAYWALK MUCH POSSIBLE. PROCEDURE CODES FA211 ESTABILISHED PATIENT [facility] CHARGE DISPOSITION & COMMUNICATION FOLLOW UP FOLLOW UP ONE MONTH WITH DR RICHEY (REASON: TREATMENT OPTIONS - BACK PAIN) ELECTRONICALLY SIGNED BY RAQUEL LIRA ON 05/29/2017 AT 07:13 PM EDT DISCLAIMER : THIS IS A VISIT SUMMARY EXTRACTED FROM THE [employer] CHART. IT IS NOT A COPY OF THE [employer] PROGRESS NOTE. VIVIAN
== END ==
LOC: M PAIN 11:00
PROVIDERS: ATTEND Nurse Practitioner Family
DX: M51.16 Intervertebral disc disorders with radiculopathy, lumbar region (principal); F17.210 Nicotine dependence, cigarettes, uncomplicated; Z79.891 Long term (current) use of opiate analgesic; Z79.899 Other long term (current) drug therapy

== ENCOUNTER → 2017-05-31 | Outpatient (CLI) | payer OTHER ==
[~2017-05-31] MED LIST changes: +OXYC1TAB23 PO
--- NOTE | 2017-06-17 23:59 | ECWPNPC ---
PATIENT NAME: KIRA RAO : 1975 GENDER: FEMALE VISIT DATE: 05/31/2017 DISCHARGE DATE: 05/31/17 0958 VISIT LOCKED DATE TIME: PHYSICIAN: CASSANDRA RICHEY RESOURCE: CASSANDRA RICHEY REASON FOR APPOINTMENT 1. LOW BACK HISTORY OF PRESENT ILLNESS HISTORY OF PRESENT ILLNESS: PAIN THE PATIENT DESCRIBES THE PAIN... 42 YEAR OLD FEMALE PATIENT WITH HISTORY OF CHRONIC LOW BACK PAIN. PATIENT DESCRIBES THE PAIN ACHING, SHARP, STABBING, TENDER, THROBBING, SORE AND SHOOTING WITH A PAIN SCORE OF 7/10 AT TODAYS VISIT. PATIENT RECEIVED A LUMBAR EPIDURAL ON 03/19/17 AND REPORTS NOT HAVING ANY PAIN RELIEF FROM THE INJECTION. MRS. RAO STATES THAT SHE HAS TRIED NUMEROUS INJECTIONS AND STATES THAT SHE HAS NOT HAD GOOD RELIEF. CURRENTLY THE PATIENT IS USING NORCO, GABAPENTIN AND SOMA FOR PAIN MANAGEMENT AND STATES THAT THE MEDICATION AIDES IN PAIN RELIEF. THE PATIENT ALSO STATES THAT THE MEDICATIONS KEEP HER MOBILE AND FUNCTIONAL. PATIENT REPORTS HAVING PAIN DOWN THE LEGS OFTEN. ANY ACTIVITY INCLUDING SITTING, STANDING, AND WALKING INCREASES THE PAIN IN THE LOWER BACK AREA. PATIENT DENIES UNEXPLAINABLE WEIGHT LOSS, FEVER, CHILLS, NEW CHANGES ON HER URINARY OR BOWEL CONTROL. FALL RISK SCREENING: SCREENING :NO FALLS IN THE PAST YEAR CURRENT MEDICATIONS TAKING LIPITOR 40 MG TABLET 1 TABLET ORALLY ONCE A DAY TAKING LISINOPRIL 40 MG TABLET 1 TABLET ORALLY ONCE A DAY TAKING VITAMIN D (ERGOCALCIFEROL) 09677 UNIT CAPSULE 1 CAPSULE ORALLY WEEKLY TAKING SOMA 350 MG TABLET 1-2 TABLET ORALLY AT BEDTIME MDD=2 TAKING GABAPENTIN 400 MG CAPSULE 1 CAPSULE ORALLY THREE TIMES A DAY TAKING NORCO 5-325 MG TABLET 1 TABLET ORALLY Q 6 HOURS PRN PAIN MDD=4 NOT-TAKING SOMA 350 MG TABLET 1 TABLET ORALLY BID MDD=2 NOT-TAKING ADVAIR HFA 45-21 MCG/ACT AEROSOL 1 PUFFS INHALATION DAILY NOT-TAKING OXYBUTYNIN CHLORIDE 5 MG TABLET 1 TABLET ORALLY DAILY NOT-TAKING HYDROCHLOROTHIAZIDE 12.5 12.5MG TABLET ORAL NOT-TAKING FIORICET 50-300-40 MG CAPSULE 1 CAPSULE NEEDED ORALLY EVERY 4 HRS PRN MIGRAINE MDD=3 NOT-TAKING NORVASC 5 MG TABLET 1 TABLET ORALLY ONCE A DAY NOT-TAKING ONDANSETRON 4 MG TABLET DISPERSIBLE ORALLY DIRECTED MEDICATION LIST REVIEWED AND RECONCILED WITH THE PATIENT PAST MEDICAL HISTORY HTN 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 REVIEW OF SYSTEMS REVIEWED BY: PROVIDER: CASSANDRA RICHEY MD . CONSTITUTIONAL: ANY CHANGE IN YOUR MEDICAL CONDITION? NO . CHILLS NO . FEVER NO . INFECTION: DO YOU HAVE NEW INFECTIONS? NO . DO YOU HAVE HISTORY OF MRSA? NO . MUSCULOSKELETAL: ANY NEW PATTERNS OF PAIN OR NUMBNESS? NO . GASTROENTEROLOGY: ANY NEW CHANGE IN BOWEL CONTROL? NO . GENITOURINARY: ANY NEW CHANGE IN BLADDER CONTROL? NO . IS THERE A CHANCE YOU COULD BE ? NO . HEMATOLOGY/LYMPH: DO YOU TAKE ANY BLOOD THINNERS? (FOR EXAMPLE- COUMADIN, PLAVIX, AGGRENOX, PLATEL, PRADAXA, OR XARELTO) NO . WHEN WAS YOUR LAST DOSE? DATE: TIME: . NEUROLOGY: HAVE YOU FALLEN IN THE PAST 6 MONTHS? NO . ANY NEW EXTREMITY NUMBNESS OR WEAKNESS? NO . CARDIOLOGY: DO YOU HAVE A PACEMAKER OR DEFIBRILLATOR? NO . RESPIRATORY: HAVE YOU BEEN SICK IN THE PAST WEEK? NO . FEVER NO . FLU LIKE SYMPTOMS? NO . COUGH NO . INTEGUMENTARY: DO YOU HAVE ANY RASHES OR OPEN SORES? NO . ALLERGIC/IMMUNO: ARE YOU ALLERGIC TO SHELLFISH OR IV DYE? NO . ANY NEW ALLERGIES? NO . PSYCHIATRIC: DO YOU HAVE THOUGHTS OF HURTING YOURSELF OR SOMEONE ELSE? NO . ARE YOU ABUSED, NEGLECTED, OR IN AN UNSAFE ENVIRONMENT? NO . ENDOCRINOLOGY: ARE YOU DIABETIC? NO . OTHER: DO YOU NEED ANY PRESCRIPTIONS? NO . IF YES, PLEASE LIST: ____ . ANY NEW PROBLEMS WITH YOUR MEDICATIONS? NO . WHEN DID YOU LAST EAT? ____ . WHEN DID YOU LAST DRINK? ____ . WHAT DID YOU LAST DRINK? ____ . NAME OF PERSON DRIVING YOU HOME? ____ . DO YOU HAVE ANY OTHER QUESTIONS OR CONCERNS NO . VITAL SIGNS WT 192 LBS, HT 64 IN, BMI 32.95 INDEX, BP 109/75 MM HG, HR 92 /MIN, RR 18 /MIN, TEMP 98.3 F, OXYGEN SAT % 100, REVIEWED BY: NL. EXAMINATION : PATIENT IS ALERT O X 3 AND COOPERATIVE. TENDERNESS IN THE LOWER BACK AND PARASPINAL MUSCLE GROUP. PATIENTS UNRINE TOX DONE ON 05/02/2017 HAVE CONSISTANT RESULTS WITH THE PATIENTS MEDICATION REGIME. MRI DONE ON 01/30/2017 OF THE LUMBAR SPINE SHOWS DISC DEGENERATION. ALSO SHOW THAT THERE IS A DIFFUSE DISC BULGE AT THE L3-4 LEVEL. THERE IS A DISC BULGE AND A SMALL CENTRAL DISC PROTRUSION PRESENT AT THE L4-5 LEVEL. AT THE LEVEL OF L5-S1 THERE IS A SMALL DISC PROTRUSION CENTRAL AND ECCENTRIC TO THE LEFT. THE CONUS MEDULLARIS IS NORMAL IN APPEARANCE TERMINATING AT THE LEVEL OF THE T12-L1 INTERVERTEBRAL DISC. ASSESSMENTS RADICULOPATHY, LUMBAR REGION - M54.16 (PRIMARY) INTERVERTEBRAL DISC DISORDERS WITH RADICULOPATHY, LUMBAR REGION - M51.16 TREATMENT RADICULOPATHY, LUMBAR REGION CLINICAL NOTES: WE DISCUSSED SEVERAL ISSUES WITH MRS. RAO'S PAIN MANAGEMENT CASE. PATIENT WILL CONTINUE WITH THE SAME MEDICATION REGIME BEFORE. PATIENT IS USING THE SOMA FOR MUSCLE SPASMS AND PAIN, GABAPENTIN FOR THE NEUROPATHIC PAIN, AND NORCO FOR THE SOMATIC PATIENT. PATIENT DENIES ABUSE OF ANY MEDICATION, DENIES USE OF ILLEGAL SUBSTANCES, AND STATES SHE IS ONLY USING THE MEDICATION FOR PAIN MANAGEMENT. URINE TOXICOLOGY DONE ON 05/02/17 SHOWS CONSISTENT RESULTS WITH THE PATIENT'S MEDICATION LIST. IN THE PAST INJECTIONS HAVE NOT HELPED IN AIDING THE PATIENTS PAIN SO AT THIS TIME I WILL HAVE THE PATIENT FOLLOW UP WITH BRANDT WELSH IN 1 MONTH FOR MEDICATION MANAGEMENT. I WOULD LIKE TO DISCUSS THE CASE WITH THE PATIENT'S PRIMARY CARE DOCTOR TO DISCUSS THE POSSIBILITY OF TAKING OVER THE MEDICATIONS. I FELIZ DOMINGUEZ DOCUMENTED THE ABOVE INFORMATION ACTING A [employer] FOR DR. RICHEY. I HAVE REVIEWED THE ABOVE DOCUMENT WRITTEN BY FELIZ YIGNIBFranco AND I VERIFY THAT IT IS ACCURATE. PROCEDURE CODES FA211 ESTABILISHED PATIENT [facility] FACILITY CHARGE G8427 DOC MEDS VERIFIED W/PT OR RE G8730 PAIN ASSESS POS TOOL F/U PLAN DOC DISPOSITION & COMMUNICATION FOLLOW UP 4 WEEKS ELECTRONICALLY SIGNED BY CASSANDRA RICHEY MD ON 06/17/2017 AT 08:41 PM EDT DISCLAIMER : THIS IS A VISIT SUMMARY EXTRACTED FROM THE [employer] ([email or web address] CHART. IT IS NOT A COPY OF THE [email or web address] PROGRESS NOTE. VIVIAN
== END ==
LOC: M PAIN 09:00
PROVIDERS: ATTEND Anesthesiology
DX: G89.29 Other chronic pain (principal); M51.16 Intervertebral disc disorders with radiculopathy, lumbar region; I10 Essential (primary) hypertension; J45.909 Unspecified asthma, uncomplicated; Z79.891 Long term (current) use of opiate analgesic; Z79.899 Other long term (current) drug therapy

== ENCOUNTER → 2017-06-10 | Outpatient (CLI) | payer OTHER ==
[~2017-06-10] MED LIST changes: -OXYC1TAB23 PO
--- NOTE | 2017-06-10 22:05 | REP ---
Clinical: Pelvic pain. Technique: Transabdominal pelvic ultrasound followed by transvaginal examination for better evaluation of the endometrium and adnexa with color Doppler evaluation of the ovaries. Findings: Heterogeneous anteverted uterus measures 7.7 x 4.4 x 5.2 cm. A small hyperechoic focus along the left side of the uterus measuring 1.3 x 1.2 x 1.0 cm is incompletely evaluated and may represent small fibroid. Endometrial complex measures 12.2 mm thickness and 8 x 4 x 5 mm polyp is suggested. Bilateral ovaries are normal in appearance and vascularity. Right ovary measures 3.2 x 1.5 x 2.0 cm and includes 1.1 cm dominant follicle; RI= 0.37. Left ovary measures 2.8 x 1.7 x 1.5 cm and includes 1.2 cm involuting cyst; RI= 0.46. No pelvic fluid or adnexal mass lesion. Impression: Cannot exclude 1.3 cm left-sided fibroid and 8 mm endometrial polyp. Signed by Dayo Trimble MD 06/10/2017 09:57 P
== END ==
LOC: M RAD 12:59
PROVIDERS: ATTEND Advanced Practice Midwife
DX: R10.30 Lower abdominal pain, unspecified (principal); N83.01 Follicular cyst of right ovary; N83.202 Unspecified ovarian cyst, left side; N83.292 Other ovarian cyst, left side

== ENCOUNTER 2017-06-14 19:07 | Emergency (ER) | payer OTHER ==
[~2017-06-14] VITALS: Ht 154.9 cm; Wt 87.3 kg
[~2017-06-14 19:07] MED LIST changes: -ATOR40TA75; -CARI350T; -GABA-283; -GABA-283 PO; -KETO10TAB PO; -LISI10TA4 PO; -LISI40TAB; -LISI40TAB PO; -PANT40TA2; -PRED20TA PO; -TIZANIDINE
[2017-06-14] MEDS ORDERED: ATOR40TA75 (19:19)
[2017-06-14] MEDS ORDERED: TIZANIDINE (19:19)
[2017-06-14] MEDS ORDERED: GABA-283 (19:19)
[2017-06-14] MEDS ORDERED: PANT40TA2 (19:19)
[2017-06-14] MEDS ORDERED: CARI350T (19:19)
[2017-06-14] MEDS ORDERED: LISI40TAB (19:19)
[2017-06-14 19:58] LABS: BASO # 0.1 K/mm3 (0.0-0.2); BASO % 0.6 % (0.0-1.0); EOS # 0.2 K/mm3 (0.0-0.50); EOS % 1.3 % (0.0-3.0); LARGE UNSTAINED CELL # 0.1 K/mm3 (0.0-0.4); LYMPH % 30.4 % (24.0-44.0); MEAN CORPUSCULAR HEMOGLOBIN 29.5 pg (27.0-33.0); MEAN CORPUSCULAR HGB CONC 34.1 g/dl (32.0-36.5); MEAN CORPUSCULAR VOLUME 86.4 fl (80.0-96.0); MONO # 0.5 K/mm3 (0.0-0.8); MONO % 4.1 % (0.0-5.0); NEUTROPHILS % 62.5 % (36.0-66.0); PLATELET COUNT, AUTOMATED 326 k/mm3 (150-450); RED CELL DISTRIBUTION WIDTH 13.3 % (11.5-14.5); WHITE BLOOD COUNT 12.7 K/mm3 (4.0-10.0)
--- NOTE | 2017-06-14 20:07 | REP ---
Clinical: Chest pain . Comparison: 09/03/2016 . Technique: PA and lateral. Findings: The mediastinum and cardiac silhouette are normal. The lung garcia are clear and without acute consolidation, effusion, or pneumothorax. The skeletal structures are intact and normal. Impression: 1. No acute cardiopulmonary process. Signed by Dayo Trimble MD 06/14/2017 07:58 P
[2017-06-14 20:09] LABS: INR 0.94
[2017-06-14 20:10] LABS: ANION GAP 8 MEQ/L (8-16); BLOOD UREA NITROGEN 9 MG/DL (7-18); CALCIUM LEVEL 8.8 MG/DL (8.5-10.1); CARBON DIOXIDE LEVEL 27 MEQ/L (21-32); CHLORIDE LEVEL 107 MEQ/L (98-107); GLOMERULAR FILTRATION RATE > 60.0 (>58); GLUCOSE, FASTING 117 MG/DL (70-105); POTASSIUM SERUM 3.5 MEQ/L (3.5-5.1); SODIUM LEVEL 142 MEQ/L (136-145); T UPTAKE 37 % (30-39); THYROXINE (T4) 10.5 UG/DL (4.5-12.0)
[2017-06-14] MEDS ORDERED: KETOROLAC 30 MG/ML VIAL (J1885) IV ONE (20:30)
[2017-06-14] MEDS ORDERED: NS 1,000 ML IV ONE (20:30)
[2017-06-14 21:08] LABS: ERYTHROCYTE SEDIMENTATION RATE 22 mm/hr (0-20)
[2017-06-14] MEDS ORDERED: dexameTHASONE 20 MG/5 ML VIAL (J1100) IV ONE (21:45)
[2017-06-14] MEDS ORDERED: ISOVUE-370 76% 100ML VIAL (Q9967) As Ordered ONE ×2 (21:54→23:52)
[2017-06-14 23:25] LABS: ABG BASE EXCESS -2.7 (-2.0-2.0); ABG HCO3 21.9 MEQ/L (22.0-26.0); ABG PARTIAL PRESSURE CO2 37.4 mmHg (35.0-45.0); ABG PARTIAL PRESSURE O2 69.6 mmHg (75.0-100.0); ABG STANDARD HCO3 22.2 MEQ/L (22.0-26.0); ABG TOTAL CO2 23.1 MEQ/L (22.0-29.0); ABG pH (ARTERIAL) 7.386 UNITS (7.350-7.450)
--- NOTE | 2017-06-15 00:30 | REPUSA ---
CLINICAL HISTORY: Pain, exclude PE. TECHNIQUE: Multiple incremental axial, coronal and oblique images are obtained from the thoracic inle t to the upper abdomen. Intravenous contrast material was administered as per pulmonary embolism prot ocol. COMMENTS: There is excellent opacification of pulmonary arterial system without evidence for pulmonary embolism . Aorta is of normal caliber without evidence for dissection or aneurysm. Bilateral basilar atelectatic pulmonary changes. Bilateral basilar multifocal air trapping in the lungs. There is no evidence of pleural or parenchymal mass. There are no pleural effusions. There is no evid ence of hilar or mediastinal lymphadenopathy. The heart and great vessels are within normal limits. Images of the upper abdomen demonstrate no evidence of adrenal mass. The bony structures are free of lytic or blastic lesions. IMPRESSION: No evidence for pulmonary embolism. Bilateral basilar atelectatic pulmonary changes. Associated basilar multifocal air trapping in the lungs. Thank you for your kind referral of this patient.
[2017-06-15] MEDS ORDERED: KETO10TAB PO (00:39)
[2017-06-15] MEDS ORDERED: PRED20TA PO (00:40)
[2017-06-15 00:44] VITALS: BP 118/63
--- NOTE | 2017-06-15 08:54 | REP ---
Note: Examination was aborted due to IV/injection failure. Signed by Dayo Trimble MD 06/15/2017 08:46 A
--- NOTE | 2017-06-15 19:25 | ECGEPIP ---
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
--- NOTE | 2017-06-15 19:57 | ED PDOC ---
Post-Departure Follow-Up ANTHONY SHANKS FAXED FORMAL REPORT OF CTA FOR FU Sara Thayer MD Jun 15, 2017 19:57
[2017-08-09] MEDS ORDERED: LISI40TAB PO (08:01)
[2017-08-09] MEDS ORDERED: LISI10TA4 PO (08:01)
[2017-08-09] MEDS ORDERED: HYDR-3713 PO (08:01)
[2017-08-09] MEDS ORDERED: TIZA4CAP3 PO (08:01)
[2017-08-09] MEDS ORDERED: GABA-283 PO (08:01)
== END 2017-06-15 00:52 | disposition home or self-care (01) ==
LOC: M ED 19:07
DX: R07.81 Pleurodynia (principal); J43.9 Emphysema, unspecified; R00.0 Tachycardia, unspecified; I10 Essential (primary) hypertension; E78.5 Hyperlipidemia, unspecified; G43.909 Migraine, unspecified, not intractable, without status migrainosus; G89.29 Other chronic pain; M54.9 Dorsalgia, unspecified; K21.9 Gastro-esophageal reflux disease without esophagitis; J45.909 Unspecified asthma, uncomplicated; F17.200 Nicotine dependence, unspecified, uncomplicated; J98.11 Atelectasis; Z79.899 Other long term (current) drug therapy
CPT/HCPCS: 36600; 71020; 71275; 80048; 82550; 82553; 82803; 84436; 84443; 84479; 85025; 85610; 85652; 85730; 93000; 96361; 96374; 96375; 99284; J1100; J1885; Q9967

== ENCOUNTER 2017-06-16 19:28 | Emergency (ER) | payer OTHER ==
[~2017-06-16] VITALS: Ht 162.6 cm; Wt 87.3 kg
[~2017-06-16 19:28] MED LIST changes: +ATOR40TA75; +CARI350T; +GABA-283; +KETO10TAB PO; +LISI40TAB; +PANT40TA2; +PRED20TA PO; +TIZANIDINE
[2017-06-16] MEDS ORDERED: NS 1,000 ML IV SCH (20:52)
[2017-06-16] MEDS ORDERED: PANTOPRAZOLE 40MG INJ (PROTONIX) (C9113) IV ONE (21:00)
[2017-06-16] MEDS ORDERED: ONDANSETRON 4MG/2ML VIAL (J2405) IV ONE (21:00)
[2017-06-16] MEDS: MORPHINE 4 MG/ML 1ML SYRINGE IV PRN ×2 (21:13→21:39)
[2017-06-16 21:40] LABS: BASO % 0.1 % (0.0-1.0); EOS # 0.2 K/mm3 (0.0-0.50); EOS % 1.2 % (0.0-3.0); LARGE UNSTAINED CELL # 0.1 K/mm3 (0.0-0.4); LARGE UNSTAINED CELL % 0.6 % (0.0-4.0); LYMPH # 1.6 K/mm3 (1.5-4.5); LYMPH % 11.6 % (24.0-44.0); MEAN CORPUSCULAR HEMOGLOBIN 29.8 pg (27.0-33.0); MEAN CORPUSCULAR HGB CONC 34.4 g/dl (32.0-36.5); MEAN CORPUSCULAR VOLUME 86.5 fl (80.0-96.0); MONO # 0.5 K/mm3 (0.0-0.8); MONO % 3.8 % (0.0-5.0); NEUTROPHILS # 11.1 K/mm3 (1.8-7.7); NEUTROPHILS % 82.7 % (36.0-66.0); PLATELET COUNT, AUTOMATED 251 k/mm3 (150-450); RED CELL DISTRIBUTION WIDTH 13.5 % (11.5-14.5); WHITE BLOOD COUNT 13.4 K/mm3 (4.0-10.0)
[2017-06-16 21:43] LABS: ALBUMIN 3.3 GM/DL (3.2-5.2); ALBUMIN/GLOBULIN RATIO 0.94 (1.00-1.93); ALKALINE PHOSPHATASE 84 U/L (45-117); ALT/SGPT 22 U/L (12-78); AMYLASE 42 U/L (25-115); ANION GAP 9 MEQ/L (8-16); AST/SGOT 11 U/L (15-37); BILIRUBIN,DIRECT < 0.1 MG/DL (0.0-0.2); BILIRUBIN,TOTAL 0.2 MG/DL (0.2-1.0); BLOOD UREA NITROGEN 15 MG/DL (7-18); CALCIUM LEVEL 8.3 MG/DL (8.5-10.1); CARBON DIOXIDE LEVEL 23 MEQ/L (21-32); CHLORIDE LEVEL 112 MEQ/L (98-107); CREATININE FOR GFR 0.67 MG/DL (0.55-1.02); GLOMERULAR FILTRATION RATE > 60.0 (>58); GLUCOSE, FASTING 123 MG/DL (70-105); POTASSIUM SERUM 4.8 MEQ/L (3.5-5.1); SODIUM LEVEL 144 MEQ/L (136-145); TOTAL PROTEIN 6.8 GM/DL (6.4-8.2)
[2017-06-16 21:55] LABS: CONTROL LINE HCG INT CTR LINE PRESENT
[2017-06-16] MEDS ORDERED: MORPHINE 4 MG/ML 1ML SYRINGE IV ONE (22:00)
[2017-06-16] MEDS ORDERED: ISOVUE-370 76% 100ML VIAL (Q9967) As Ordered ONE (22:18)
--- NOTE | 2017-06-16 22:38 | REP ---
Clinical: Left lower quadrant pain. Technique: Axial contrast enhanced images from the lung bases to the pubic symphysis using 100 ml Isovue 370 intravenous contrast material with coronal and sagittal re-formations. Comparison: 06/13/2015. Findings: Lung bases demonstrate subtle scattered opacities suggesting atelectasis and posterior basilar dependent changes. Visualized portions of the heart and pericardium are normal. Liver, spleen, pancreas, bilateral adrenal glands and kidneys are normal. The patient is status post cholecystectomy. The enteric system is without obstruction or acute inflammatory process and a normal terminal ileum and appendix are identified in the right lower quadrant. Colonic and sigmoid diverticulosis noted without acute diverticulitis. Pelvis demonstrates normal bladder and age-appropriate uterus/adnexa. Trace pelvic fluid is likely physiologic and related to menstrual cycle. No ascites. No free air. No intraperitoneal or retroperitoneal adenopathy. Abdominal aorta and vasculature appears normal and without aneurysm or dissection. Surrounding musculoskeletal structures are normal for age. Impression: 1. No acute abdominopelvic pathology appreciated. Specifically, no free fluid, evidence for obstruction, free air, or adenopathy. 2. Sigmoid diverticulosis without acute diverticulitis. 3. Possible subtle basilar atelectasis. Signed by Dayo Trimble MD 06/16/2017 10:37 P
[2017-06-16] MEDS ORDERED: CEFTRIAXONE SOD IV ONE (23:45)
[2017-06-16] MEDS ORDERED: D5W IV ONE (23:45)
[2017-06-16] MEDS ORDERED: cefTRIAXone SOD 250 MG in D5W MINI-BAG PLUS 50 ML IV ONE (23:52)
[2017-06-17 01:31] VITALS: BP 115/64
[2017-08-09] MEDS ORDERED: LISI10TA4 PO (08:01)
[2017-08-09] MEDS ORDERED: LISI40TAB PO (08:01)
[2017-08-09] MEDS ORDERED: HYDR-3713 PO (08:01)
[2017-08-09] MEDS ORDERED: TIZA4CAP3 PO (08:01)
[2017-08-09] MEDS ORDERED: GABA-283 PO (08:01)
== END 2017-06-17 01:47 | disposition home or self-care (01) ==
LOC: M ED 19:28
DX: K57.30 Diverticulosis of large intestine without perforation or abscess without bleeding (principal); R10.9 Unspecified abdominal pain; I10 Essential (primary) hypertension; E78.5 Hyperlipidemia, unspecified; Z90.49 Acquired absence of other specified parts of digestive tract; Z79.899 Other long term (current) drug therapy
CPT/HCPCS: 74177; 80048; 80076; 81001; 82150; 83690; 84703; 85025; 87086; 96361; 96374; 96375; 96376; 99283; C9113; J0696; J2405; Q9967

== ENCOUNTER → 2017-07-01 | Outpatient (CLI) | payer OTHER ==
[~2017-07-01] MED LIST changes: +GABA-283 PO; +LISI10TA4 PO; +LISI40TAB PO; +OXYC1TAB23 PO
--- NOTE | 2017-07-31 02:19 | ECWPNPC ---
PATIENT NAME: KIRA RAO : 1975 GENDER: FEMALE VISIT DATE: 07/01/2017 DISCHARGE DATE: 07/01/17 1038 VISIT LOCKED DATE TIME: PHYSICIAN: MAT WELSH RESOURCE: MAT WELSH REASON FOR APPOINTMENT 1. LOW BACK PAIN HISTORY OF PRESENT ILLNESS HISTORY OF PRESENT ILLNESS: PAIN THE PATIENT DESCRIBES THE PAIN... FALL RISK SCREENING: SCREENING :NO FALLS IN THE PAST YEAR TODAY'S VISIT: NOTES: RATES PAIN TODAY 10.NOTES CONTINUED DISCOMFORT ACROSS THE LOW BC AND THE HIPS. STATES HER PAIN MEDS MAKE HER MEDICATIONS ARE HELPFUL IN KEEPING PAIN CONTROLLED. CURRENT MEDICATIONS TAKING LIPITOR 40 MG TABLET 1 TABLET ORALLY ONCE A DAY TAKING LISINOPRIL 40 MG TABLET 1 TABLET ORALLY ONCE A DAY TAKING VITAMIN D (ERGOCALCIFEROL) 80834 UNIT CAPSULE 1 CAPSULE ORALLY WEEKLY TAKING SOMA 350 MG TABLET 1-2 TABLET ORALLY AT BEDTIME MDD=2 TAKING GABAPENTIN 400 MG CAPSULE 1 CAPSULE ORALLY THREE TIMES A DAY TAKING NORCO 5-325 MG TABLET 1 TABLET ORALLY Q 6 HOURS PRN PAIN MDD=4 NOT-TAKING SOMA 350 MG TABLET 1 TABLET ORALLY BID MDD=2 NOT-TAKING ADVAIR HFA 45-21 MCG/ACT AEROSOL 1 PUFFS INHALATION DAILY NOT-TAKING OXYBUTYNIN CHLORIDE 5 MG TABLET 1 TABLET ORALLY DAILY NOT-TAKING HYDROCHLOROTHIAZIDE 12.5 12.5MG TABLET ORAL NOT-TAKING FIORICET 50-300-40 MG CAPSULE 1 CAPSULE NEEDED ORALLY EVERY 4 HRS PRN MIGRAINE MDD=3 NOT-TAKING NORVASC 5 MG TABLET 1 TABLET ORALLY ONCE A DAY NOT-TAKING ONDANSETRON 4 MG TABLET DISPERSIBLE ORALLY DIRECTED MEDICATION LIST REVIEWED AND RECONCILED WITH THE PATIENT PAST MEDICAL HISTORY HTN 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 SURGICAL HISTORY TUBAL GALLBLADDER REMOVED REVIEW OF SYSTEMS REVIEWED BY: PROVIDER: MAT WELSH TRANSMITTER ENGINEER IN CHARGE . CONSTITUTIONAL: ANY CHANGE IN YOUR MEDICAL CONDITION? SEES ON REGARDING FIBROID ON OVARY TO SEE IF NEED SURGERY OR NOT . CHILLS NO . FEVER NO . INFECTION: DO YOU HAVE NEW INFECTIONS? TAKING ANTIBIOTICS FOR DIVERTICULITIS / HAS BEEN TO ER 3X WITH THIS . DO YOU HAVE HISTORY OF MRSA? NO . MUSCULOSKELETAL: ANY NEW PATTERNS OF PAIN OR NUMBNESS? NO . GASTROENTEROLOGY: ANY NEW CHANGE IN BOWEL CONTROL? NO . GENITOURINARY: ANY NEW CHANGE IN BLADDER CONTROL? NO . IS THERE A CHANCE YOU COULD BE ? NO . HEMATOLOGY/LYMPH: DO YOU TAKE ANY BLOOD THINNERS? (FOR EXAMPLE- COUMADIN, PLAVIX, AGGRENOX, PLATEL, PRADAXA, OR XARELTO) NO . WHEN WAS YOUR LAST DOSE? DATE: TIME: . NEUROLOGY: HAVE YOU FALLEN IN THE PAST 6 MONTHS? NO . ANY NEW EXTREMITY NUMBNESS OR WEAKNESS? NO . CARDIOLOGY: DO YOU HAVE A PACEMAKER OR DEFIBRILLATOR? NO . RESPIRATORY: HAVE YOU BEEN SICK IN THE PAST WEEK? NO . FEVER NO . FLU LIKE SYMPTOMS? NO . COUGH NO . INTEGUMENTARY: DO YOU HAVE ANY RASHES OR OPEN SORES? NO . ALLERGIC/IMMUNO: ARE YOU ALLERGIC TO SHELLFISH OR IV DYE? NO . ANY NEW ALLERGIES? NO . PSYCHIATRIC: DO YOU HAVE THOUGHTS OF HURTING YOURSELF OR SOMEONE ELSE? NO . ARE YOU ABUSED, NEGLECTED, OR IN AN UNSAFE ENVIRONMENT? NO . ENDOCRINOLOGY: ARE YOU DIABETIC? NO . OTHER: DO YOU NEED ANY PRESCRIPTIONS? NO . IF YES, PLEASE LIST: ____ . ANY NEW PROBLEMS WITH YOUR MEDICATIONS? NO . WHEN DID YOU LAST EAT? ____ . WHEN DID YOU LAST DRINK? ____ . WHAT DID YOU LAST DRINK? ____ . NAME OF PERSON DRIVING YOU HOME? ____ . DO YOU HAVE ANY OTHER QUESTIONS OR CONCERNS NO . VITAL SIGNS WT 192 LBS, HT 64 IN, BMI 32.95 INDEX, BP 112/57 MM HG, HR 103 /MIN, RR 16 /MIN, TEMP 98.5 F, OXYGEN SAT % 93%, NA INITIALS SC 10;00, REVIEWED BY: NL. EXAMINATION GENERAL EXAMINATION: PSYCHALERT , ORIENTED X 3 , APPROPRIATE MOOD AND AFFECT . LUNGS:CLEAR TO AUSCULTATION BILATERALLY. HEART:HEART RATE REGULAR. MUSCULOSKELETAL:POINT TENDERNESS OVER LUMBAR SPINOUS PROCESSES AND OVER THE BILATERAL SACRAL ILIAC JOINTS. . SLOW TO RISE TO STANDING POSITION, GAIT WIDEBASED. CANE USED FOR BALANCE.. EXTREMITIES:NO EDEMA. NEUROLOGIC EXAM:NO SENSORY DEFICIET IN LOWER EXTREMITIES.. ASSESSMENTS INTERVERTEBRAL DISC DISORDERS WITH RADICULOPATHY, LUMBAR REGION - M51.16 (PRIMARY) LUMBAR RADICULOPATHY - M54.16 CHRONIC PRESCRIPTION OPIATE USE - Z79.891 TREATMENT INTERVERTEBRAL DISC DISORDERS WITH RADICULOPATHY, LUMBAR REGION NOTES: CONTINUE CURRENT MEDS. CALL WHEN SCRIPTS DUE. CLINICAL NOTES: ISTOP REGISTRY REVIEWED AND DEMNOSTRATES COMPLLIANCE. (REF# [id number]) BRINGS IN MEDICATIONS WHICH IS APPROPRIATE FOR WHAT WAS DISPENSED. RECENT URINE TOXICOLOGY REVIEWED. NO UNAUTHORIZED MEDICATIONS. NO ILLICIT SUBSTANCES AND PRESCRIBED MEDICATIONS WERE PRESENT. PROCEDURE CODES FA211 ESTABILISHED PATIENT [facility] CHARGE DISPOSITION & COMMUNICATION FOLLOW UP 2 WEEKS (REASON: BACK PAIN) ELECTRONICALLY SIGNED BY RAQUEL LIRA ON 07/30/2017 AT 09:27 AM EDT DISCLAIMER : THIS IS A VISIT SUMMARY EXTRACTED FROM THE [employer] CHART. IT IS NOT A COPY OF THE [employer] PROGRESS NOTE. VIVIAN
== END ==
LOC: M PAIN 09:15
PROVIDERS: ATTEND Nurse Practitioner Family
DX: G89.29 Other chronic pain (principal); M51.16 Intervertebral disc disorders with radiculopathy, lumbar region; I10 Essential (primary) hypertension; J45.909 Unspecified asthma, uncomplicated; Z79.891 Long term (current) use of opiate analgesic; Z79.899 Other long term (current) drug therapy

== ENCOUNTER → 2017-07-18 | Outpatient (CLI) | payer OTHER ==
--- NOTE | 2017-07-18 13:14 | REP ---
Chest x-ray: Two views. History: Cough and shortness of breath. Comparison chest x-ray June 14, 2017. Findings: There is linear plate-like atelectasis in the left base which is a new finding. There is a zone of linear fibrosis in the right base unchanged. The lung garcia are otherwise clear. Pleural angles are sharp. There is straightening of the normal thoracic kyphosis. There are clips in the right upper quadrant of the abdomen again noted. Heart size is normal. Impression: New discoid atelectasis in the lingular segment left upper lobe. Right base fibrosis. Otherwise no active disease. Signed by Grant Kuhn MD 07/18/2017 05:20 P
== END ==
LOC: M RAD 12:12
PROVIDERS: ATTEND Physician Assistant Medical
DX: R05 Cough (principal)

== ENCOUNTER → 2017-07-23 | Outpatient (CLI) | payer OTHER ==
--- NOTE | 2017-07-24 02:45 | REP ---
Clinical: Dyspnea. Acute bronchitis . Comparison: None available . Technique: PA and lateral. Findings: The mediastinum and cardiac silhouette are normal. The lung garcia are clear and without acute consolidation, effusion, or pneumothorax. The skeletal structures are intact and normal. Impression: 1. No acute cardiopulmonary process. Signed by Dayo Trimble MD 07/24/2017 02:36 A
== END ==
LOC: M RAD 08:53
PROVIDERS: ATTEND Physician Assistant Medical
DX: J20.9 Acute bronchitis, unspecified (principal)

== ENCOUNTER 2017-08-23 08:33 | Day surgery (SDC) | payer OTHER ==
[~2017-08-23] VITALS: Ht 162.6 cm; Wt 89.9 kg
[~2017-08-23 08:33] MED LIST changes: -OXYC1TAB23 PO
[2017-08-23] MEDS ORDERED: LR 1,000 ML IV ONE (08:45)
[2017-08-23 09:25] LABS: CONTROL LINE UCG INT CTR LINE PRESENT
[2017-08-23 10:09] LABS: MEAN CORPUSCULAR HEMOGLOBIN 28.9 pg (27.0-33.0); MEAN CORPUSCULAR HGB CONC 33.2 g/dl (32.0-36.5); MEAN CORPUSCULAR VOLUME 87.2 fl (80.0-96.0); PLATELET COUNT, AUTOMATED 272 10^3/uL (150-450); RED CELL DISTRIBUTION WIDTH 13.2 % (11.5-14.5); WHITE BLOOD COUNT 7.6 10^3/uL (4.0-10.0)
[2017-08-23] MEDS ORDERED: METHYLENE BLUE 0.5% (5MG/ML) 10 ML AMP (PROVAYBLUE)(Q9968 PER 1MG) As Ordered ONE (10:17)
[2017-08-23] MEDS ORDERED: BUPIVACAINE HCL 0.25% 30 ML VIAL As Ordered ONE (10:17)
[2017-08-23] MEDS ORDERED: METOCLOPRAMIDE INJ 10MG/2ML VIAL (J2765) As Ordered ONE (11:06)
[2017-08-23] MEDS ORDERED: MIDAZOLAM INJ 2 MG/2 ML VIAL (J2250) As Ordered ONE (11:06)
[2017-08-23] MEDS ORDERED: fentaNYL 250 MCG/5 ML INJECTION (J3010) As Ordered ONE (11:06)
[2017-08-23] MEDS ORDERED: PROPOFOL 500 MG/50 ML VIAL As Ordered ONE (11:06)
[2017-08-23] MEDS ORDERED: dexameTHASONE 4 MG/ML 1ML VIAL (J1100) As Ordered ONE (11:06)
[2017-08-23] MEDS ORDERED: fentaNYL 100 MCG/2 ML INJECTION (J3010) As Ordered ONE ×2 (11:06→12:52)
[2017-08-23] MEDS ORDERED: VECURONIUM BROMIDE 10 MG VIAL As Ordered ONE (11:17)
[2017-08-23] MEDS ORDERED: HYDROmorphone HCL 2 MG/ML 1ML VIAL (J1170) As Ordered ONE (11:19)
[2017-08-23] MEDS ORDERED: ONDANSETRON 4MG/2ML VIAL (J2405) As Ordered ONE (12:12)
[2017-08-23] MEDS ORDERED: SUGAMMADEX SODIUM 500 MG/5 ML VIAL (BRIDION) As Ordered ONE (12:17)
[2017-08-23] MEDS ORDERED: HYDROmorphone HCL 1 MG/ML SYRINGE (J1170) As Ordered ONE ×3 (12:43→13:41)
[2017-08-23] MEDS: HYDROmorphone HCL 1 MG/ML SYRINGE (J1170) IV PRN ×5 (12:46→13:41)
[2017-08-23] MEDS ORDERED: PERCOCET 5MG/325MG TAB PO PRN ×3 (13:30→13:45)
[2017-08-23] MEDS ORDERED: LR 1,000 ML IV SCH ×2 (13:30→13:45)
[2017-08-23] MEDS ORDERED: fentaNYL 100 MCG/2 ML INJECTION (J3010) IV PRN (13:30)
[2017-08-23] MEDS ORDERED: ONDANSETRON 4MG/2ML VIAL (J2405) IV PRN ×2 (13:30→13:45)
[2017-08-23 14:40] VITALS: BP 118/56
[2017-08-23 15:00] VITALS: BP 109/60
[2017-08-23 15:30] VITALS: BP 112/64
[2017-08-23 16:30] VITALS: BP 123/56
[2017-08-23] MEDS ORDERED: KETOROLAC 30 MG/ML VIAL (J1885) IV SCH (17:00)
[2017-08-23 17:30] VITALS: BP 143/63
[2017-08-23] MEDS ORDERED: OXYC1TAB23 PO (17:59)
[2017-08-23] MEDS ORDERED: DOCUSATE SODIUM 100 MG CAP PO SCH (21:00)
--- NOTE | 2017-08-25 15:36 | RO ---
DATE OF PROCEDURE: 08/23/2017 PREPROCEDURE DIAGNOSES: Menorrhagia, dysmenorrhea. POSTPROCEDURE DIAGNOSES: Menorrhagia, dysmenorrhea. PROCEDURE: Robotic-assisted laparoscopic hysterectomy, cystoscopy. SURGEON: Dr. David Riojas OCULAR CARE AIDE: Di Thomas NP ANESTHESIA: General endotracheal. ESTIMATED BLOOD LOSS: 100 mL. FINDINGS: Mildly enlarged uterus, normal ovaries and fallopian tubes, normal upper abdomen. DESCRIPTION OF PROCEDURE: The patient was taken to the operating room where general endotracheal anesthesia was induced. She was prepped and draped in a sterile fashion in the dorsal lithotomy positive. A Shaw catheter was placed, the VCare uterine manipulator was placed. Periumbilical incision was made with a scalpel. The Veress needle was placed through this incision while tenting up on the skin of the abdomen. Intraabdominal location of the Veress needle with use of saline filled syringe. A pneumoperitoneum was created. Veress needle was removed. An 11 mm trocar was then placed through this incision using VisiPort. Three 8 mm suprapubic ports were placed under direct visualization. The patient was placed in Trendelenburg position. The da Nargis surgical robot was docked to the ports. Using the PK dissector and monopolar Endo Moo, the utero-ovarian ligaments, fallopian tubes and round ligaments were coagulated and incised. The anterior and posterior leaves of the broad ligament were . Bladder flap was created. The uterine vessels were skeletonized, coagulated and incised. The colpotomy was created using the monopolar Endo Moo at the level of the VCare cup, this circumscribed the upper vagina at the level of the VCare cup. Specimen containing the uterus, cervix was removed through the vagina. The vagina was closed with a #1 V-Loc suture in a running fashion. The pelvis was irrigated. Good hemostasis noted. A cystoscopy was performed using a 70-degree cystoscope. The patient received methylene blue dye intravenously. Bilateral ureteral jets were identified. There was no evidence of injury to the bladder. The cystoscope was removed. The Shaw catheter was replaced. Di Thomas, nurse practitioner, assisted with all aspects of the procedure. She positioned the patient, and helped with port placement. She manipulated the uterus throughout the case. She removed the specimen. She undocked the robot, and removed the ports .She closed the incision sites. All ports were removed. The da Nargis robot was undocked. The fascia at the umbilical port was closed with interrupted suture of #0 Vicryl. Skin was closed with #4-0 Monocryl. Sponge, instrument and needle counts were correct. MTDD
== END 2017-08-23 18:35 | disposition home or self-care (01) ==
LOC: M SDC 08:33 → M MSPAV 14:30 → M SDC 18:35
PROVIDERS: ATTEND Specialist
DX: N80.0 Endometriosis of uterus (principal); N92.0 Excessive and frequent menstruation with regular cycle; N94.6 Dysmenorrhea, unspecified; I10 Essential (primary) hypertension; E78.5 Hyperlipidemia, unspecified; E04.1 Nontoxic single thyroid nodule; D64.9 Anemia, unspecified; Z86.73 Personal history of transient ischemic attack (TIA), and cerebral infarction without residual deficits; Z79.899 Other long term (current) drug therapy

== ENCOUNTER 2017-09-26 11:59 | Day surgery (SDC) | payer OTHER ==
[~2017-09-26] VITALS: Ht 162.6 cm; Wt 91.2 kg
[~2017-09-26 11:59] MED LIST changes: -ATOR40TA75; +ATOR40TA75 PO; +OXYC1TAB23 PO; +PROAAER10 INH; +ZANA4CAP PO
[2017-09-26] MEDS ORDERED: NS 1,000 ML IV ONE (12:00)
[2017-09-26] MEDS ORDERED: PROPOFOL 200 MG/20 ML VIAL As Ordered ONE ×2 (14:07→15:06)
[2017-09-26] MEDS ORDERED: LIDOCAINE 2% INJ 100 MG/5 ML SDV (FOR ANES.) As Ordered ONE (14:11)
--- NOTE | 2017-09-26 15:13 | ROOR ---
Patient Name: Addie Peterson Procedure Date: 09/26/2017 2:52 PM Date of : 1975 Age: 42 Room: [facility] Gender: Female Note Status: Finalized Procedure: Colonoscopy Indications: Generalized abdominal pain, Change in bowel habits, Constipation Providers: Devendra ESTRELLA MD Referring MD: OSCAR NEWTON Requesting Provider: Medicines: Monitored Anesthesia Care Complications: No immediate complications. Procedure: Pre-Anesthesia Assessment: - The heart rate, respiratory rate, oxygen saturations, blood pressure, adequacy of pulmonary ventilation, and response to care were monitored throughout the procedure. The Colonoscope was introduced through the anus and advanced to the cecum, identified by appendiceal orifice and ileocecal valve. The colonoscopy was performed without difficulty. The patient tolerated the procedure well. The quality of the bowel preparation was fair. Findings: The perianal and digital rectal examinations were normal. (EXAM: Complete, PREP: Suboptimal) A 3 mm polyp was found in the cecum. The polyp was sessile. The polyp was removed with a cold snare. Resection and retrieval were complete. Three sessile polyps were found in the proximal descending colon and splenic flexure. The polyps were 3 to 5 mm in size. These polyps were removed with a cold snare. Resection and retrieval were complete. Internal hemorrhoids were found during retroflexion. The hemorrhoids were moderate. Multiple medium-mouthed diverticula were found in the sigmoid colon. The exam was otherwise without abnormality on direct and retroflexion views. Impression: - Preparation of the colon was fair. - (EXAM: Complete, PREP: Suboptimal) - One 3 mm polyp in the cecum, removed with a cold snare. Resected and retrieved. - Three 3 to 5 mm polyps in the proximal descending colon and at the splenic flexure, removed with a cold snare. Resected and retrieved. - Internal hemorrhoids. - Diverticulosis in the sigmoid colon. - The examination was otherwise normal on direct and retroflexion views. Recommendation: - Telephone endoscopist for pathology results in 2 weeks. - Repeat colonoscopy in 2 years because the bowel preparation was suboptimal. - Miralax 1 capful (17 grams) in 8 ounces of water PO BID. Devendra Estrella MD Devendra ESTRELLA MD 09/26/2017 3:13:34 PM This report has been signed electronically. Number of Addenda: 0 Note Initiated On: 09/26/2017 2:52 PM Estimated Blood Loss: Estimated blood loss: none.
[2017-09-26 15:30] VITALS: BP 131/59
== END 2017-09-26 15:35 | disposition home or self-care (01) ==
LOC: M OPP 11:59
PROVIDERS: ATTEND Internal Medicine Gastroenterology
DX: K57.30 Diverticulosis of large intestine without perforation or abscess without bleeding (principal); K64.8 Other hemorrhoids; R10.84 Generalized abdominal pain; R19.4 Change in bowel habit; I10 Essential (primary) hypertension; J45.909 Unspecified asthma, uncomplicated; R51 Headache; M54.9 Dorsalgia, unspecified; M79.7 Fibromyalgia; M06.9 Rheumatoid arthritis, unspecified; E78.00 Pure hypercholesterolemia, unspecified; E07.9 Disorder of thyroid, unspecified; R07.9 Chest pain, unspecified; M79.81 Nontraumatic hematoma of soft tissue; F17.210 Nicotine dependence, cigarettes, uncomplicated; Z87.19 Personal history of other diseases of the digestive system; I25.2 Old myocardial infarction; Z79.891 Long term (current) use of opiate analgesic; Z79.899 Other long term (current) drug therapy; Z88.8 Allergy status to other drugs, medicaments and biological substances

== ENCOUNTER → 2017-10-22 | Outpatient (CLI) | payer OTHER | LOC: M PAIN 11:15 | DX: M51.16 Intervertebral disc disorders with radiculopathy, lumbar region (principal); I10 Essential (primary) hypertension; Z79.891 Long term (current) use of opiate analgesic; Z79.899 Other long term (current) drug therapy; Z88.8 Allergy status to other drugs, medicaments and biological substances | CPT/HCPCS: G0463 ==

== ENCOUNTER → 2017-10-25 | Outpatient (CLI) | payer OTHER | LOC: M RAD 08:49 | DX: R91.1 Solitary pulmonary nodule (principal) | CPT/HCPCS: 71250 ==

== ENCOUNTER → 2017-11-19 | Outpatient (CLI) | payer OTHER | LOC: M PAIN 11:30 | DX: M51.16 Intervertebral disc disorders with radiculopathy, lumbar region (principal); M25.551 Pain in right hip; M25.552 Pain in left hip; M79.1 Myalgia; I10 Essential (primary) hypertension; J45.909 Unspecified asthma, uncomplicated; F17.210 Nicotine dependence, cigarettes, uncomplicated; Z88.6 Allergy status to analgesic agent; Z88.8 Allergy status to other drugs, medicaments and biological substances; Z79.891 Long term (current) use of opiate analgesic; Z79.899 Other long term (current) drug therapy | CPT/HCPCS: G0463 ==

== ENCOUNTER → 2017-12-16 | Outpatient (CLI) | payer OTHER | LOC: M RAD 11:43 | DX: M51.16 Intervertebral disc disorders with radiculopathy, lumbar region (principal) | CPT/HCPCS: 73521 ==

== ENCOUNTER → 2017-12-25 | Outpatient (REF) | payer OTHER ==
[2017-12-25 18:44] LABS: ESTIMATED AVERAGE GLUCOSE 137 MG/DL (60-110); HEMOGLOBIN A1c 6.4 %
[2017-12-25 18:49] LABS: ALBUMIN 4.2 GM/DL (3.2-5.2); ALBUMIN/GLOBULIN RATIO 1.17 (1.00-1.93); ALKALINE PHOSPHATASE 100 U/L (45-117); ALT/SGPT 25 U/L (12-78); ANION GAP 7 MEQ/L (8-16); AST/SGOT 12 U/L (7-37); BILIRUBIN,TOTAL 0.3 MG/DL (0.2-1.0); BLOOD UREA NITROGEN 9 MG/DL (7-18); CALCIUM LEVEL 9.1 MG/DL (8.5-10.1); CARBON DIOXIDE LEVEL 26 MEQ/L (21-32); CHLORIDE LEVEL 104 MEQ/L (98-107); CHOLESTEROL LEVEL 148 MG/DL (<200); CHOLESTEROL RISK RATIO 3.217 (<5); CREATININE FOR GFR 0.63 MG/DL (0.55-1.30); GLOMERULAR FILTRATION RATE > 60.0 (>58); GLUCOSE, FASTING 90 MG/DL (70-100); HDL CHOLESTEROL 46 MG/DL (>40); LDL CHOLESTEROL 59.6 MG/DL (<100); NON-HDL-C 102 MG/DL; POTASSIUM SERUM 4.4 MEQ/L (3.5-5.1); SODIUM LEVEL 137 MEQ/L (136-145); THYROID STIMULATING HORMONE 0.767 uIU/ML (0.358-3.740); TOTAL PROTEIN 7.8 GM/DL (6.4-8.2); TRIGLYCERIDES LEVEL 212 MG/DL (<150)
[2017-12-25 19:04] LABS: BASO # 0.1 10^3/uL (0.0-0.2); BASO % 0.7 % (0.0-1.0); EOS # 0.1 10^3/uL (0.0-0.50); EOS % 0.8 % (0.0-3.0); HEMATOCRIT 43.7 % (36.0-47.0); HEMOGLOBIN 14.5 g/dl (12.0-16.0); IMMATURE GRANULOCYTE % 0.4 % (0-3.0); LYMPH % 31.9 % (24.0-44.0); MEAN CORPUSCULAR HGB CONC 33.2 g/dl (32.0-36.5); MEAN CORPUSCULAR VOLUME 84.4 fl (80.0-96.0); MONO # 0.4 10^3/uL (0.0-0.8); MONO % 4.4 % (0.0-5.0); NEUTROPHILS # 5.9 10^3/uL (1.8-7.7); NEUTROPHILS % 61.8 % (36.0-66.0); PLATELET COUNT, AUTOMATED 254 10^3/uL (150-450); RED BLOOD COUNT 5.18 10^6/uL (4.00-5.40); RED CELL DISTRIBUTION WIDTH 13.4 % (11.5-14.5); WHITE BLOOD COUNT 9.5 10^3/uL (4.0-10.0)
[2017-12-25 19:23] LABS: HIV 1&2 SCREEN CENTAUR NEGATIVE (NEGATIVE)
[2017-12-25 19:53] LABS: ERYTHROCYTE SEDIMENTATION RATE 14 mm/hr (0-20)
[2017-12-25 20:31] LABS: CHLAMYDIA DNA AMPLIFICATION NEGATIVE (NEGATIVE); GC DNA AMPLIFICATION NEGATIVE (NEGATIVE)
[2017-12-25 20:50] LABS: ADD MORPHOLOGY? YES; POS COUNT POS FLAG
[2017-12-25 20:52] LABS: PLATELET CLUMPS SMALL AMT; PLATELET ESTIMATE NORMAL (NORMAL)
== END ==
LOC: M LAB REF 16:35
DX: Z11.3 Encounter for screening for infections with a predominantly sexual mode of transmission (principal); R35.8 Other polyuria; I10 Essential (primary) hypertension; E78.5 Hyperlipidemia, unspecified; Z13.1 Encounter for screening for diabetes mellitus; E04.1 Nontoxic single thyroid nodule; E55.9 Vitamin D deficiency, unspecified; R10.9 Unspecified abdominal pain; M06.9 Rheumatoid arthritis, unspecified
CPT/HCPCS: 84443

== ENCOUNTER → 2018-01-01 | Outpatient (CLI) | payer OTHER | LOC: M PAIN 09:15 | DX: M51.16 Intervertebral disc disorders with radiculopathy, lumbar region (principal); M79.1 Myalgia; I10 Essential (primary) hypertension; F17.210 Nicotine dependence, cigarettes, uncomplicated; Z79.891 Long term (current) use of opiate analgesic; M25.551 Pain in right hip; M25.552 Pain in left hip; Z79.899 Other long term (current) drug therapy; Z88.8 Allergy status to other drugs, medicaments and biological substances | CPT/HCPCS: G0463 ==

== ENCOUNTER → 2018-01-29 | Outpatient (CLI) | payer OTHER | LOC: M PAIN 09:45 | DX: M51.16 Intervertebral disc disorders with radiculopathy, lumbar region (principal); M79.1 Myalgia; I10 Essential (primary) hypertension; J45.909 Unspecified asthma, uncomplicated; F17.210 Nicotine dependence, cigarettes, uncomplicated; Z79.891 Long term (current) use of opiate analgesic; Z79.899 Other long term (current) drug therapy; Z88.6 Allergy status to analgesic agent; Z88.8 Allergy status to other drugs, medicaments and biological substances | CPT/HCPCS: G0463 ==

== ENCOUNTER → 2018-02-14 | Outpatient (CLI) | payer OTHER ==
[2018-02-14 11:18] LABS: ALBUMIN 3.7 GM/DL (3.2-5.2); ANION GAP 7 MEQ/L (8-16); BLOOD UREA NITROGEN 11 MG/DL (7-18); CALCIUM LEVEL 9.1 MG/DL (8.5-10.1); CARBON DIOXIDE LEVEL 27 MEQ/L (21-32); CHLORIDE LEVEL 105 MEQ/L (98-107); CREATININE FOR GFR 0.68 MG/DL (0.55-1.30); GLOMERULAR FILTRATION RATE > 60.0 (>58); GLUCOSE, FASTING 85 MG/DL (70-100); PHOSPHORUS LEVEL 4.4 MG/DL (2.5-4.9); POTASSIUM SERUM 4.4 MEQ/L (3.5-5.1); SODIUM LEVEL 139 MEQ/L (136-145)
== END ==
LOC: M RAD 10:48
DX: M54.16 Radiculopathy, lumbar region (principal)
CPT/HCPCS: 72148

== ENCOUNTER → 2018-02-14 | Outpatient (CLI) | payer OTHER | LOC: M RAD 11:00 | DX: R35.0 Frequency of micturition (principal) | CPT/HCPCS: 76775 ==

== ENCOUNTER 2018-03-12 12:27 | Emergency (ER) | payer OTHER ==
[2018-03-12] MEDS ORDERED: ONDANSETRON 4MG/2ML VIAL (J2405) As Ordered (15:00)
[2018-03-12] MEDS ORDERED: GASTROGRAFIN SOLUTION 30ML (Q9963) As Ordered (17:34)
[2018-03-12 22:20] LABS: ALBUMIN 3.7 GM/DL (3.2-5.2); ALKALINE PHOSPHATASE 99 U/L (45-117); ALT/SGPT 31 U/L (12-78); ANION GAP 6 MEQ/L (8-16); AST/SGOT 14 U/L (7-37); BILIRUBIN,DIRECT < 0.1 MG/DL (0.0-0.2); BILIRUBIN,TOTAL 0.3 MG/DL (0.2-1.0); BLOOD UREA NITROGEN 9 MG/DL (7-18); CALCIUM LEVEL 9.1 MG/DL (8.5-10.1); CARBON DIOXIDE LEVEL 27 MEQ/L (21-32); CHLORIDE LEVEL 106 MEQ/L (98-107); CREATININE FOR GFR 0.79 MG/DL (0.55-1.30); GLOMERULAR FILTRATION RATE > 60.0 (>58); GLUCOSE, FASTING 131 MG/DL (70-100); LIPASE 99 U/L (73-393); POTASSIUM SERUM 3.8 MEQ/L (3.5-5.1); SODIUM LEVEL 139 MEQ/L (136-145); TOTAL PROTEIN 7.4 GM/DL (6.4-8.2)
[2018-03-13 00:23] LABS: BASO # 0.1 10^3/uL (0.0-0.2); BASO % 0.5 % (0.0-1.0); EOS % 0.2 % (0.0-3.0); HEMATOCRIT 41.8 % (36.0-47.0); IMMATURE GRANULOCYTE % 0.2 % (0-3.0); LYMPH # 2.5 10^3/uL (1.5-4.5); LYMPH % 27.2 % (24.0-44.0); MEAN CORPUSCULAR HEMOGLOBIN 28.5 pg (27.0-33.0); MEAN CORPUSCULAR HGB CONC 33.5 g/dl (32.0-36.5); MEAN CORPUSCULAR VOLUME 85.1 fl (80.0-96.0); MONO # 0.3 10^3/uL (0.0-0.8); MONO % 3.1 % (0.0-5.0); NEUTROPHILS # 6.4 10^3/uL (1.8-7.7); NEUTROPHILS % 68.8 % (36.0-66.0); PLATELET COUNT, AUTOMATED 311 10^3/uL (150-450); RED BLOOD COUNT 4.91 10^6/uL (4.00-5.40); RED CELL DISTRIBUTION WIDTH 13.2 % (11.5-14.5); WHITE BLOOD COUNT 9.3 10^3/uL (4.0-10.0)
[2018-03-13 02:30] LABS: KETONE, URINE AUTO RFX NEGATIVE (NEGATIVE); LEUKOCYTE ESTERASE UR AUTO RFX NEGATIVE (NEGATIVE); MUCUS, URINE RFX SMALL (NEGATIVE); NITRITE, URINE AUTO RFX NEGATIVE (NEGATIVE); RBC, URINE AUTO RFX 0 /HPF (0-3); SQUAM EPITHELIAL CELL UR AURFX 0 /HPF (0-6); WBC, URINE AUTO RFX 0 /HPF (0-3)
== END 2018-03-12 19:40 | disposition left against medical advice (07) ==
LOC: M ED 12:27
DX: R10.9 Unspecified abdominal pain (principal); R42 Dizziness and giddiness; R53.1 Weakness; R00.0 Tachycardia, unspecified; R11.0 Nausea; E03.9 Hypothyroidism, unspecified; F95.9 Tic disorder, unspecified; I10 Essential (primary) hypertension; E78.00 Pure hypercholesterolemia, unspecified; J45.909 Unspecified asthma, uncomplicated; G47.30 Sleep apnea, unspecified; M79.7 Fibromyalgia; F41.9 Anxiety disorder, unspecified; Z88.8 Allergy status to other drugs, medicaments and biological substances; Z79.899 Other long term (current) drug therapy
CPT/HCPCS: 93005

== ENCOUNTER → 2018-04-23 | Outpatient (CLI) | payer OTHER | LOC: M PAIN 14:15 | DX: M51.16 Intervertebral disc disorders with radiculopathy, lumbar region (principal); M79.1 Myalgia; I10 Essential (primary) hypertension; J45.909 Unspecified asthma, uncomplicated; Z79.891 Long term (current) use of opiate analgesic; Z88.6 Allergy status to analgesic agent; Z79.899 Other long term (current) drug therapy | CPT/HCPCS: G0463 ==

== ENCOUNTER → 2018-05-22 | Outpatient (CLI) | payer OTHER | LOC: M RAD 15:13 | DX: N60.02 Solitary cyst of left breast (principal) | CPT/HCPCS: 77066 ==